=== PATIENT | female | born 1935 | race Caucasian/White ===

== ENCOUNTER → 2016-11-03 | Outpatient (CLI) | payer OTHER ==
[~2016-11-03] MED LIST: ENAL5TAB92 PO; MULTCAP45 PO; PANT40T PO
== END | disposition home or self-care (01) ==
LOC: LAB 08:38
PROVIDERS: ATTEND Physician Assistant
DX: R30.0 Dysuria (principal)
CPT/HCPCS: 87086

== ENCOUNTER → 2017-04-18 | Outpatient (CLI) | payer OTHER | END | disposition home or self-care (01) | LOC: LAB 06:46 | PROVIDERS: ATTEND Registered Nurse General Practice | DX: N39.0 Urinary tract infection, site not specified (principal) | CPT/HCPCS: 87086 ==

== ENCOUNTER → 2017-05-16 | Outpatient (CLI) | payer OTHER | END | disposition home or self-care (01) | LOC: LAB 09:06 | PROVIDERS: ATTEND Physician Assistant | DX: M25.872 Other specified joint disorders, left ankle and foot (principal) ==

== ENCOUNTER → 2017-09-08 | Outpatient (CLI) | payer OTHER ==
[2017-09-08 09:33] LABS: Urine RBC None Seen /hpf (0 - 4)
[2017-09-08 09:58] LABS: Basophils # (auto) 0 uL; Basophils % (auto) 0.4 % (0.0-2.0); Eosinophils # (auto) 0.1 uL; Hematocrit 39.9 % (36.0-46.0); Hemoglobin 13.4 g/dL (12.2-16.2); Lymphocytes # (auto) 1.5 uL; Lymphocytes % (auto) 26.4 % (10.0-50.0); Mean Corpuscular Hemoglobin 30.1 pg (28.0-32.0); Mean Corpuscular Hgb Conc. 33.7 g/dL (32.0-36.0); Mean Corpuscular Volume 89.5 fL (80.0-100.0); Mean Platelet Volume 7.7 fL (6.9-10.8); Monocytes # (auto) 0.5 uL; Monocytes % (auto) 8.7 % (0.0-12.0); Neutrophils # (auto) 3.6 uL; Neutrophils % (auto) 63.5 % (37.0-80.0); Platelet Count (auto) 371 10^3/uL (140-450); White Blood Cell 5.6 10^3/uL (4.4-10.8)
[2017-09-08 10:11] LABS: Urine Bilirubin Negative (Negative); Urine Blood Negative /uL (Negative); Urine Color Yellow (Yellow); Urine Glucose Normal (Normal); Urine Ketone Negative (Negative); Urine Nitrite Negative (Negative); Urine Squamous Epithelial Cell FEW /hpf (<5); Urine Urobilinogen Normal (Negative); Urine pH 6.5 (5.0-8.0)
[2017-09-08 10:49] LABS: Albumin 3.9 g/dL (3.4-5.0); BUN/Creatinine Ratio 18.6; Bilirubin, Total 0.4 mg/dL (0.2-1.0); Calcium 9.1 mg/dL (8.5-10.1); Potassium 4.9 mmol/L (3.5-5.1); Total Protein 7.4 g/dL (6.4-8.2)
== END | disposition home or self-care (01) ==
LOC: LAB 09:05
PROVIDERS: ATTEND Family Medicine
DX: I10 Essential (primary) hypertension (principal); K29.01 Acute gastritis with bleeding; M85.80 Other specified disorders of bone density and structure, unspecified site
CPT/HCPCS: 36415; 80053; 80061; 81001; 82306; 85025

== ENCOUNTER 2017-10-19 06:04 | Day surgery (SDC) | payer OTHER ==
[2017-10-17 12:45] LABS: Urine Bacteria NONE SEEN /hpf (None Seen); Urine Blood Negative /uL (Negative); Urine Mucus FEW (None Seen); Urine Specific Gravity 1.003 (1.001-1.035); Urine WBC 1 /hpf (0 - 5)
[2017-10-17 12:50] LABS: Basophils # (auto) 0.1 uL; Basophils % (auto) 1.5 % (0.0-2.0); Eosinophils # (auto) 0 uL; Eosinophils % (auto) 0.5 % (0.0-7.0); Hematocrit 38.5 % (36.0-46.0); Lymphocytes # (auto) 1.8 uL; Lymphocytes % (auto) 29.8 % (10.0-50.0); Mean Corpuscular Hemoglobin 29.9 pg (28.0-32.0); Mean Corpuscular Hgb Conc. 33.7 g/dL (32.0-36.0); Mean Corpuscular Volume 88.7 fL (80.0-100.0); Monocytes # (auto) 0.7 uL; Monocytes % (auto) 11.7 % (0.0-12.0); Neutrophils # (auto) 3.4 uL; Neutrophils % (auto) 56.5 % (37.0-80.0); Nucleated Red Blood Cells % 0.1 %; Platelet Count (auto) 422 10^3/uL (140-450); Red Blood Cells 4.34 10^6/uL (4.0-5.20); Red Cell Distribution Width 13.9 % (11.8-14.3)
[2017-10-17 13:15] LABS: Albumin 3.7 g/dL (3.4-5.0); BUN/Creatinine Ratio 20.6; Bilirubin, Total 0.3 mg/dL (0.2-1.0); Calcium 8.9 mg/dL (8.5-10.1); Potassium 4.5 mmol/L (3.5-5.1); Total Protein 7.4 g/dL (6.4-8.2)
[2017-10-17 13:41] LABS: INR 0.95 (0.9-1.15); Partial Thromboplastin Time 25.4 sec (22.64-33.71); Prothrombin Time 10.3 sec (9.37-12.3)
[~2017-10-19] VITALS: Ht 160 cm; Wt 54.4 kg
[2017-10-19] MEDS ORDERED: ceFAZolin 1GM/50ML 50 ML IV ONE (06:57)
[2017-10-19] MEDS ORDERED: LIDOCAINE HCL 100 MG/5ML (2%) SYRG INJ IV ONE (07:53)
[2017-10-19] MEDS ORDERED: MIDAZOLAM HCL 1MG/1ML-2 ML VIAL ONE (07:53)
[2017-10-19] MEDS ORDERED: PROPOFOL 10 MG/ML 20 ML IV ONE (07:53)
[2017-10-19] MEDS ORDERED: METOCLOPRAMIDE HCL 5MG/ml INJ 2ml VIAL ONE (07:54)
[2017-10-19] MEDS ORDERED: fentaNYL CITRATE 100 MCG/2 ML VL ONE (08:00)
[2017-10-19] MEDS ORDERED: LIDOCAINE 1% HCL (LOCAL ANESTH.) INJ 20ML MDV ONE (08:06)
[2017-10-19] MEDS ORDERED: ePHEDrine SULFATE 50 MG/ML AMP ONE (08:23)
[2017-10-19] MEDS ORDERED: STERILE WATER 10 ML ONE (08:23)
[2017-10-19] MEDS ORDERED: ePHEDrine SULFATE 50 MG/ML AMP IV PRN (08:30)
[2017-10-19] MEDS ORDERED: NALOXONE HCL 0.4 MG/ML VIAL IV PRN (08:30)
[2017-10-19] MEDS ORDERED: ONDANSETRON HCL 4 MG/2 ML VIAL IV ONE (08:30)
[2017-10-19] MEDS ORDERED: HYDROmorphone HCL 2 MG/ML VL IV PRN (08:30)
[2017-10-19 09:17] VITALS: BP 119/56
== END 2017-10-19 09:19 | disposition home or self-care (01) ==
LOC: SUR 06:04
PROVIDERS: ATTEND Surgery
DX: L57.0 Actinic keratosis (principal); D69.6 Thrombocytopenia, unspecified; Z88.5 Allergy status to narcotic agent; Z88.6 Allergy status to analgesic agent; Z88.2 Allergy status to sulfonamides; Z90.49 Acquired absence of other specified parts of digestive tract; I10 Essential (primary) hypertension; E11.9 Type 2 diabetes mellitus without complications
CPT/HCPCS: 27618; 36415; 80053; 81001; 85025; 85610; 85730; 88305; J0690; J2001; J2250; J2704; J2765; J3010; Q4131

== ENCOUNTER → 2018-12-08 | Outpatient (CLI) | payer OTHER ==
[~2018-12-08] MED LIST changes: +ENAL5TAB PO; -ENAL5TAB92 PO
[2018-12-08 09:43] LABS: Basophils # (auto) 0 uL; Basophils % (auto) 0.8 % (0.0-2.0); Eosinophils # (auto) 0.2 uL; Eosinophils % (auto) 4.4 % (0.0-7.0); Hematocrit 41.9 % (36.0-46.0); Hemoglobin 13.8 g/dL (12.2-16.2); Lymphocytes # (auto) 1.3 uL; Lymphocytes % (auto) 32.6 % (10.0-50.0); Mean Corpuscular Hemoglobin 29.4 pg (28.0-32.0); Mean Corpuscular Hgb Conc. 32.9 g/dL (32.0-36.0); Mean Corpuscular Volume 89.3 fL (80.0-100.0); Monocytes # (auto) 0.5 uL; Monocytes % (auto) 12.2 % (0.0-12.0); Neutrophils # (auto) 1.9 uL; Platelet Count (auto) 370 10^3/uL (140-450); Red Cell Distribution Width 13.7 % (11.8-14.3); White Blood Cell 3.8 10^3/uL (4.4-10.8)
[2018-12-08 09:46] LABS: Urine Bacteria NONE SEEN /hpf (None Seen); Urine Blood Negative /uL (Negative); Urine Specific Gravity 1.013 (1.001-1.035); Urine WBC 1 /hpf (0 - 5)
[2018-12-08 10:31] LABS: Albumin 3.8 g/dL (3.4-5.0); Potassium 4.4 mmol/L (3.5-5.1)
[2018-12-08 10:38] LABS: Bilirubin, Total 0.3 mg/dL (0.2-1.0); Calcium 9.1 mg/dL (8.5-10.1); Total Protein 7.5 g/dL (6.4-8.2)
[2018-12-08 16:28] LABS: BUN/Creatinine Ratio 16.2
== END | disposition home or self-care (01) ==
LOC: LAB 08:31
PROVIDERS: ATTEND Family Medicine
DX: I10 Essential (primary) hypertension (principal); K21.9 Gastro-esophageal reflux disease without esophagitis
CPT/HCPCS: 36415; 80053; 80061; 81001; 82306; 82607; 84443; 85025

== ENCOUNTER → 2019-01-29 | Outpatient (CLI) | payer OTHER | END | disposition home or self-care (01) | LOC: LAB 08:46 | PROVIDERS: ATTEND Nurse Practitioner Family | DX: N30.01 Acute cystitis with hematuria (principal) | CPT/HCPCS: 87086 ==

== ENCOUNTER → 2019-11-20 | Day surgery (SDC) | payer OTHER ==
[2019-11-15 09:21] LABS: Basophils # (auto) 0 uL; Basophils % (auto) 0.8 % (0.0-2.0); Eosinophils # (auto) 0.1 uL; Eosinophils % (auto) 1.8 % (0.0-7.0); Hematocrit 41.3 % (36.0-46.0); Hemoglobin 13.8 g/dL (12.2-16.2); Lymphocytes # (auto) 1.5 uL; Mean Corpuscular Hemoglobin 29.9 pg (28.0-32.0); Mean Corpuscular Hgb Conc. 33.5 g/dL (32.0-36.0); Mean Corpuscular Volume 89.3 fL (80.0-100.0); Monocytes # (auto) 0.5 uL; Neutrophils # (auto) 2.2 uL; Neutrophils % (auto) 51.4 % (37.0-80.0); Nucleated Red Blood Cells % 0.1 %; Platelet Count (auto) 343 10^3/uL (140-450); Red Blood Cells 4.62 10^6/uL (4.0-5.20); White Blood Cell 4.3 10^3/uL (4.4-10.8)
[2019-11-15 09:38] LABS: INR 1.01 (0.9-1.15); Partial Thromboplastin Time 29.6 sec (23.64-32.05)
[~2019-11-20] VITALS: Ht 160 cm; Wt 53.1 kg
[~2019-11-20] MED LIST changes: +LIDOCAINE VISCOUS 2% 15ML UD ONE; +MIDAZOLAM HCL 5 MG/ML-1ML VIAL ONE; -PANT40T PO; +PANT40TA2 PO; +SODIUM CHLORIDE LOCK 10 ML ONE; +diphenhdrAMINE HCL 50 MG/1 ML VL ONE; +fentaNYL CITRATE 100 MCG/2 ML VL ONE
[2019-11-20 12:55] VITALS: BP 154/59
== END | disposition home or self-care (01) ==
LOC: GI 10:52
PROVIDERS: ATTEND Internal Medicine Gastroenterology
DX: K29.50 Unspecified chronic gastritis without bleeding (principal); Z88.5 Allergy status to narcotic agent; Z88.2 Allergy status to sulfonamides; Z88.8 Allergy status to other drugs, medicaments and biological substances; Z79.899 Other long term (current) drug therapy; Z90.49 Acquired absence of other specified parts of digestive tract; Z87.891 Personal history of nicotine dependence
CPT/HCPCS: 36415; 43239; 85025; 85610; 85730; 88305; 88342; J1200; J2250; J3010; J7030

== ENCOUNTER → 2021-07-24 | Outpatient (CLI) | payer OTHER ==
[~2021-07-24] MED LIST changes: -ENAL5TAB PO; +ENAL5TAB10 PO; -LIDOCAINE VISCOUS 2% 15ML UD ONE; -MIDAZOLAM HCL 5 MG/ML-1ML VIAL ONE; -SODIUM CHLORIDE LOCK 10 ML ONE; -diphenhdrAMINE HCL 50 MG/1 ML VL ONE; -fentaNYL CITRATE 100 MCG/2 ML VL ONE
[2021-07-24 09:34] LABS: Basophils # (auto) 0 10 ^3/uL (0-0.2); Basophils % (auto) 0.5 % (0.0-2.0); Eosinophils # (auto) 0 10 ^3/uL (0-0.8); Eosinophils % (auto) 1.1 % (0.0-7.0); Hematocrit 37.4 % (36.0-46.0); Hemoglobin 12.8 g/dL (12.2-16.2); Lymphocytes # (auto) 1.4 10 ^3/uL (0.4-5.4); Lymphocytes % (auto) 35.2 % (10.0-50.0); Mean Corpuscular Hemoglobin 29.9 pg (28.0-32.0); Mean Corpuscular Hgb Conc. 34.2 g/dL (32.0-36.0); Mean Corpuscular Volume 87.5 fL (80.0-100.0); Monocytes # (auto) 0.5 10 ^3/uL (0-1.3); Monocytes % (auto) 11.8 % (0.0-12.0); Neutrophils # (auto) 2.1 10 ^3/uL (1.6-8.6); Neutrophils % (auto) 51.4 % (37.0-80.0); Nucleated Red Blood Cells % 0.1 %; Red Blood Cells 4.28 10^6/uL (4.0-5.20); White Blood Cell 4.1 10^3/uL (4.4-10.8)
[2021-07-24 09:45] LABS: Urine Bacteria NONE SEEN /hpf (None Seen); Urine Blood Negative /uL (Negative); Urine Specific Gravity 1.012 (1.001-1.035); Urine WBC <1 /hpf (0 - 5)
[2021-07-24 10:10] LABS: Potassium 4.7 mmol/L (3.5-5.1)
[2021-07-24 10:20] LABS: Albumin 3.7 g/dL (3.4-5.0); BUN/Creatinine Ratio 25.4; Bilirubin, Total 0.3 mg/dL (0.2-1.0); Calcium 9.5 mg/dL (8.5-10.1); Total Protein 6.9 g/dL (6.4-8.2)
== END | disposition home or self-care (01) ==
LOC: LAB 08:55
PROVIDERS: ATTEND Student in an Organized Health Care Education/Training Program
DX: I10 Essential (primary) hypertension (principal); M81.0 Age-related osteoporosis without current pathological fracture; E78.49 Other hyperlipidemia; S32.89XS Fracture of other parts of pelvis, sequela
CPT/HCPCS: 36415; 80053; 80061; 81001; 82306; 85025

== ENCOUNTER → 2022-02-02 | Outpatient (CLI) | payer OTHER ==
[~2022-02-02] VITALS: Ht 157.5 cm; Wt 53.5 kg
[~2022-02-02] MED LIST changes: +ADENOSINE 45 MG in GIVE UN-DILUTED 0 ML IV ONE
[2022-02-02 09:15] VITALS: BP 160/60
== END | disposition home or self-care (01) ==
LOC: XYW 07:48
PROVIDERS: ATTEND Internal Medicine
DX: R07.9 Chest pain, unspecified (principal); U09.9 Post COVID-19 condition, unspecified; Z87.898 Personal history of other specified conditions
CPT/HCPCS: 78452; 93017; A9500; J0153

== ENCOUNTER → 2022-02-03 | Outpatient (CLI) | payer OTHER ==
[~2022-02-03] MED LIST changes: -ADENOSINE 45 MG in GIVE UN-DILUTED 0 ML IV ONE
== END | disposition home or self-care (01) ==
LOC: XYW 09:28
PROVIDERS: ATTEND Internal Medicine
DX: R07.89 Other chest pain (principal)
CPT/HCPCS: 93886

== ENCOUNTER 2022-05-12 06:51 | Day surgery (SDC) | payer OTHER ==
[2022-05-10 11:11] LABS: Basophils # (auto) 0 10 ^3/uL (0-0.2); Basophils % (auto) 0.4 % (0.0-2.0); Eosinophils # (auto) 0 10 ^3/uL (0-0.8); Eosinophils % (auto) 0.6 % (0.0-7.0); Hematocrit 40.1 % (36.0-46.0); Lymphocytes # (auto) 1.3 10 ^3/uL (0.4-5.4); Lymphocytes % (auto) 32.3 % (10.0-50.0); Mean Corpuscular Hemoglobin 28.1 pg (28.0-32.0); Mean Corpuscular Hgb Conc. 32.3 g/dL (32.0-36.0); Mean Corpuscular Volume 87.1 fL (80.0-100.0); Monocytes # (auto) 0.5 10 ^3/uL (0-1.3); Monocytes % (auto) 10.9 % (0.0-12.0); Neutrophils # (auto) 2.3 10 ^3/uL (1.6-8.6); Neutrophils % (auto) 55.8 % (37.0-80.0); Nucleated Red Blood Cells % 0.1 %; Red Blood Cells 4.61 10^6/uL (4.0-5.20); Red Cell Distribution Width 14.8 % (11.8-14.3); White Blood Cell 4.1 10^3/uL (4.4-10.8)
[2022-05-10 11:56] LABS: Albumin 3.9 g/dL (3.4-5.0); Calcium 9.1 mg/dL (8.5-10.1); Potassium 5.1 mmol/L (3.5-5.1)
[2022-05-10 12:05] LABS: BUN/Creatinine Ratio 16.7; Bilirubin, Total 0.4 mg/dL (0.2-1.0); Total Protein 7.5 g/dL (6.4-8.2)
[2022-05-10 12:10] LABS: Partial Thromboplastin Time 30.2 sec (24.6-33.4)
[~2022-05-12] VITALS: Ht 157.5 cm; Wt 53.1 kg
[~2022-05-12 06:51] MED LIST changes: +ALEN70TA2 PO; +CALCTAB62 PO; +CRAN600T PO; -PANT40TA2 PO
[2022-05-12] MEDS ORDERED: fentaNYL CITRATE 100 MCG/2 ML VL ONE (09:37)
[2022-05-12] MEDS ORDERED: ANGIOMAX 250 MG VIAL IV ONE (09:37)
[2022-05-12] MEDS ORDERED: HEPARIN SODIUM (PORCINE) 5000 UNITS/ML 1ML VIAL ONE (09:37)
[2022-05-12] MEDS ORDERED: VERAPAMIL 2.5MG/ML INJ 2ML VIAL IV ONE (09:37)
[2022-05-12] MEDS ORDERED: SODIUM CHL 0.9% 0 ML ONE (09:38)
[2022-05-12] MEDS ORDERED: MIDAZOLAM HCL 2MG/2ML 2ml VIAL (1mg/ml) ONE (09:38)
[2022-05-12] MEDS ORDERED: IODIXANOL 320MG/ML 100ML BTL IV ONE (09:38)
[2022-05-12] MEDS ORDERED: LIDOCAINE 2%HCL (LOCAL ANESTH.) INJ 10ml MDV ONE (09:39)
[2022-05-12] MEDS ORDERED: ONDANSETRON HCL 4 MG/2 ML VIAL IV PRN (12:30)
== END 2022-05-12 13:20 | disposition home or self-care (01) ==
LOC: CATH 06:51
PROVIDERS: ATTEND Internal Medicine
DX: R94.39 Abnormal result of other cardiovascular function study (principal); I25.10 Atherosclerotic heart disease of native coronary artery without angina pectoris; Z87.891 Personal history of nicotine dependence; Z20.822 Contact with and (suspected) exposure to COVID-19; Z82.49 Family history of ischemic heart disease and other diseases of the circulatory system
CPT/HCPCS: 36415; 80053; 85025; 85610; 85730; 93458; C1769; C1887; C1894; J1644; J2001; J2250; J3010; J7030; Q9967; U0003; 99152

== ENCOUNTER 2022-07-12 06:41 | Day surgery (SDC) | payer OTHER ==
[2022-07-09 10:15] LABS: Basophils # (auto) 0 10 ^3/uL (0-0.2); Basophils % (auto) 0.7 % (0.0-2.0); Eosinophils # (auto) 0.1 10 ^3/uL (0-0.8); Eosinophils % (auto) 2.5 % (0.0-7.0); Hematocrit 40.6 % (36.0-46.0); Hemoglobin 13.4 g/dL (12.2-16.2); Lymphocytes # (auto) 1.3 10 ^3/uL (0.4-5.4); Lymphocytes % (auto) 33.3 % (10.0-50.0); Mean Corpuscular Hemoglobin 28.9 pg (28.0-32.0); Mean Corpuscular Hgb Conc. 32.9 g/dL (32.0-36.0); Mean Corpuscular Volume 87.6 fL (80.0-100.0); Monocytes # (auto) 0.5 10 ^3/uL (0-1.3); Monocytes % (auto) 12.1 % (0.0-12.0); Neutrophils # (auto) 2.1 10 ^3/uL (1.6-8.6); Neutrophils % (auto) 51.4 % (37.0-80.0); Nucleated Red Blood Cells % 0.1 %; Red Blood Cells 4.63 10^6/uL (4.0-5.20); Red Cell Distribution Width 14.8 % (11.8-14.3)
[2022-07-09 10:55] LABS: Albumin 3.9 g/dL (3.4-5.0); Calcium 9.3 mg/dL (8.5-10.1); Potassium 5.1 mmol/L (3.5-5.1)
[2022-07-09 11:00] LABS: BUN/Creatinine Ratio 16.7; Bilirubin, Total 0.4 mg/dL (0.2-1.0); INR 0.98 (0.9-1.15); Partial Thromboplastin Time 31.8 sec (24.6-33.4); Total Protein 7.2 g/dL (6.4-8.2)
[~2022-07-12] VITALS: Ht 154.9 cm; Wt 53.5 kg
[~2022-07-12 06:41] MED LIST changes: -ALEN70TA2 PO; +FLEC1TAB PO; +PANT40TA2 PO
[2022-07-12] MEDS ORDERED: LIDOCAINE 2%HCL (LOCAL ANESTH.) INJ 20ML MDV ONE ×2 (08:32→09:19)
[2022-07-12] MEDS ORDERED: fentaNYL CITRATE 100 MCG/2 ML VL ONE (09:17)
[2022-07-12] MEDS ORDERED: VANCOMYCIN 1GM/250ML 250 ML IV ONE (09:17)
[2022-07-12 09:28] VITALS: BP 162/69
[2022-07-12] MEDS ORDERED: ENAL2.5T11 PO (10:06)
== END 2022-07-12 10:45 | disposition home or self-care (01) ==
LOC: CATH 06:41
PROVIDERS: ATTEND Internal Medicine
DX: R55 Syncope and collapse (principal); Z87.891 Personal history of nicotine dependence; Z82.49 Family history of ischemic heart disease and other diseases of the circulatory system; Z20.822 Contact with and (suspected) exposure to COVID-19
CPT/HCPCS: 33285; 36415; 80053; 85025; 85610; 85730; C1764; J3010; J3370; J7030; U0003; 99152

== ENCOUNTER → 2022-08-16 | Outpatient (CLI) | payer OTHER ==
[~2022-08-16] MED LIST changes: +ENAL2.5T11 PO; -ENAL5TAB10 PO
== END | disposition home or self-care (01) ==
LOC: XYW 09:22
PROVIDERS: ATTEND Internal Medicine
DX: I99.8 Other disorder of circulatory system (principal); R00.2 Palpitations; R55 Syncope and collapse
CPT/HCPCS: 93886

== ENCOUNTER 2023-07-06 19:34 | Emergency (ER) | payer OTHER ==
[~2023-07-06] VITALS: Ht 157.5 cm; Wt 53.2 kg
[2023-07-06 20:18] LABS: Basophils # (auto) 0.1 10 ^3/uL (0-0.2); Basophils % (auto) 0.8 % (0.0-2.0); Eosinophils # (auto) 0.3 10 ^3/uL (0-0.8); Hematocrit 35.9 % (36.0-46.0); Hemoglobin 12.3 g/dL (12.2-16.2); Lymphocytes # (auto) 2.1 10 ^3/uL (0.4-5.4); Lymphocytes % (auto) 18.1 % (10.0-50.0); Mean Corpuscular Hemoglobin 29.3 pg (28.0-32.0); Mean Corpuscular Hgb Conc. 34.3 g/dL (32.0-36.0); Mean Corpuscular Volume 85.5 fL (80.0-100.0); Monocytes # (auto) 1.2 10 ^3/uL (0-1.3); Monocytes % (auto) 10.3 % (0.0-12.0); Neutrophils # (auto) 7.8 10 ^3/uL (1.6-8.6); Neutrophils % (auto) 67.8 % (37.0-80.0); White Blood Cell 11.4 10^3/uL (4.4-10.8)
[2023-07-06 20:33] LABS: Alanine Aminotransferase 18 U/L (7-40); Albumin 4.6 g/dL (3.2-4.8); Alkaline Phosphatase 88 U/L (46-116); Anion Gap 3 (5-15); Aspartate Aminotransferase 19 U/L (13-40); BUN/Creatinine Ratio 11.8 (10.0-20.0); Bilirubin, Total 0.2 mg/dL (0.2-1.0); Blood Urea Nitrogen 9 mg/dL (9-23); Calcium 9.9 mg/dL (8.7-10.4); Carbon Dioxide 30 mmol/L (20-30); Chloride 95 mmol/L (98-107); Glucose 128 mg/dL (74-106); Potassium 4.2 mmol/L (3.5-5.1); Sodium 128 mmol/L (136-145); Total Protein 7.1 g/dL (5.7-8.2)
[2023-07-06 20:52] LABS: Urine Bacteria NONE SEEN /hpf (None Seen); Urine Blood Negative /uL (Negative); Urine Clarity Clear (Clear); Urine Color Colorless (Yellow); Urine Protein, UAD Negative (Negative); Urine Specific Gravity 1.009 (1.001-1.035); Urine Urobilinogen Normal (Negative); Urine WBC <1 /hpf (0 - 5)
[2023-07-06 20:53] LABS: INR 1.06 (0.9-1.15); Partial Thromboplastin Time 32.8 SEC (24.5-34.5); Prothrombin Time 11.1 sec (9.3-11.8)
[2023-07-06 22:00] VITALS: BP 138/67; PULSE 63; RESP 18; TEMP 98.4; O2SAT 97
== END 2023-07-06 22:10 | disposition home or self-care (01) ==
LOC: ER 19:36
DX: K62.5 Hemorrhage of anus and rectum (principal); I10 Essential (primary) hypertension; Z86.73 Personal history of transient ischemic attack (TIA), and cerebral infarction without residual deficits; Z90.49 Acquired absence of other specified parts of digestive tract; Z90.89 Acquired absence of other organs; Z88.6 Allergy status to analgesic agent; Z88.2 Allergy status to sulfonamides
CPT/HCPCS: 36415; 74176; 80053; 81001; 85025; 85610; 85730; 93005

== ENCOUNTER 2023-08-07 09:30 | Inpatient (IN) | payer MEDICARE, OTHER ==
[~2023-08-07] VITALS: Ht 162.6 cm; Wt 53.4 kg
[~2023-08-07 09:30] MED LIST changes: +ASPI-543 PO; +CLON0.1T PO; +LOSA50TA46 PO; +MULT-1018 PO
[2023-08-07 10:15] LABS: Basophils # (auto) 0 10 ^3/uL (0-0.2); Basophils % (auto) 0.6 % (0.0-2.0); Eosinophils # (auto) 0.1 10 ^3/uL (0-0.8); Eosinophils % (auto) 1.9 % (0.0-7.0); Hematocrit 35.7 % (36.0-46.0); Hemoglobin 11.7 g/dL (12.2-16.2); Lymphocytes % (auto) 17.8 % (10.0-50.0); Mean Corpuscular Hemoglobin 28.2 pg (28.0-32.0); Mean Corpuscular Hgb Conc. 32.7 g/dL (32.0-36.0); Mean Corpuscular Volume 86.2 fL (80.0-100.0); Monocytes # (auto) 0.5 10 ^3/uL (0-1.3); Monocytes % (auto) 9.7 % (0.0-12.0); Nucleated Red Blood Cells % 0.1 %; Red Blood Cells 4.14 10^6/uL (4.0-5.20); Red Cell Distribution Width 14.6 % (11.8-14.3); White Blood Cell 5.7 10^3/uL (4.4-10.8)
[2023-08-07 10:48] LABS: Alanine Aminotransferase 16 U/L (7-40); Albumin 4.1 g/dL (3.2-4.8); Alkaline Phosphatase 70 U/L (46-116); Anion Gap 7 (5-15); Aspartate Aminotransferase 24 U/L (13-40); BUN/Creatinine Ratio 18.1 (10.0-20.0); Blood Urea Nitrogen 13 mg/dL (9-23); Calcium 9.2 mg/dL (8.7-10.4); Carbon Dioxide 23 mmol/L (20-30); Chloride 105 mmol/L (98-107); Glucose 92 mg/dL (74-106); Potassium 4.5 mmol/L (3.5-5.1); Sodium 135 mmol/L (136-145)
[2023-08-07 10:49] LABS: Bilirubin, Total 0.4 mg/dL (0.2-1.0); Total Protein 6.3 g/dL (5.7-8.2)
[2023-08-07] MEDS ORDERED: ACETAMINOPHEN 325 MG TAB PO PRN (13:45)
[2023-08-07] MEDS ORDERED: MORPHINE SULFATE INJ 2 MG/ml SYRG IV PRN (13:45)
[2023-08-07] MEDS ORDERED: NITROGLYCERIN 0.4 MG SL TAB SL PRN (13:45)
[2023-08-07] MEDS: SODIUM CHLORIDE 0.9% 1,000 ML IV SCH (13:52)
[2023-08-07 15:44] LABS: Urine Amorphous Crystal FEW /hpf (None Seen); Urine Bacteria NONE SEEN /hpf (None Seen); Urine Blood Negative /uL (Negative); Urine Clarity HAZY (Clear); Urine Color Yellow (Yellow); Urine Hyaline Cast FEW /lpf (0 - 2); Urine Mucus FEW (None Seen); Urine Protein, UAD TRACE (Negative); Urine Specific Gravity 1.017 (1.001-1.035); Urine Urobilinogen Normal (Negative); Urine WBC 4 /hpf (0 - 5); Urine pH 6.5 (5.0-8.0)
[2023-08-07 17:30] VITALS: PULSE 92
[2023-08-07 21:18] VITALS: PULSE 51; RESP 16; O2SAT 99
[2023-08-07 22:00] VITALS: BP 154/91; PULSE 51; RESP 16; TEMP 98.1; O2SAT 99
[2023-08-07] MEDS: FLECAINIDE ACETATE 50 MG TAB PO SCH (22:00)
[2023-08-08 05:00] VITALS: BP 156/56; PULSE 51; RESP 16; TEMP 98.3; O2SAT 98
[2023-08-08 06:54] LABS: Basophils # (auto) 0 10 ^3/uL (0-0.2); Basophils % (auto) 0.8 % (0.0-2.0); Eosinophils # (auto) 0.2 10 ^3/uL (0-0.8); Eosinophils % (auto) 4.9 % (0.0-7.0); Hematocrit 34.2 % (36.0-46.0); Hemoglobin 11.4 g/dL (12.2-16.2); Lymphocytes # (auto) 1.3 10 ^3/uL (0.4-5.4); Lymphocytes % (auto) 29.7 % (10.0-50.0); Mean Corpuscular Hemoglobin 28.7 pg (28.0-32.0); Mean Corpuscular Hgb Conc. 33.4 g/dL (32.0-36.0); Mean Corpuscular Volume 86.2 fL (80.0-100.0); Monocytes # (auto) 0.6 10 ^3/uL (0-1.3); Monocytes % (auto) 13.6 % (0.0-12.0); Neutrophils # (auto) 2.2 10 ^3/uL (1.6-8.6); Nucleated Red Blood Cells % 0.1 %; Red Blood Cells 3.97 10^6/uL (4.0-5.20); Red Cell Distribution Width 14.5 % (11.8-14.3); White Blood Cell 4.4 10^3/uL (4.4-10.8)
[2023-08-08 07:13] LABS: Alanine Aminotransferase 11 U/L (7-40); Alkaline Phosphatase 51 U/L (46-116); Anion Gap 8 (5-15); BUN/Creatinine Ratio 17.9 (10.0-20.0); Blood Urea Nitrogen 10 mg/dL (9-23); Calcium 9.1 mg/dL (8.5-10.1); Carbon Dioxide 23 mmol/L (20-30); Chloride 106 mmol/L (98-107); Glucose 75 mg/dL (74-106); Potassium 4.1 mmol/L (3.5-5.1); Sodium 137 mmol/L (136-145)
[2023-08-08 07:15] LABS: Albumin 3.7 g/dL (3.2-4.8); Aspartate Aminotransferase 15 U/L (13-40); Bilirubin, Total 0.5 mg/dL (0.2-1.0); Total Protein 5.9 g/dL (5.7-8.2)
[2023-08-08 08:00] VITALS: PULSE 56; PULSE 63; RESP 18; O2SAT 96
[2023-08-08 09:00] VITALS: BP 141/90; PULSE 56; RESP 18; TEMP 98.2; O2SAT 96
[2023-08-08] MEDS: FLECAINIDE ACETATE 50 MG TAB PO SCH (10:00)
[2023-08-08] MEDS ORDERED: MULTIPLE VITAMIN TAB PO SCH (10:00)
[2023-08-08] MEDS ORDERED: ENOXAPARIN SOD 40 MG/0.4 ML SYRINGE SC SCH (10:00)
[2023-08-08] MEDS ORDERED: LOSARTAN POTASSIUM 50 MG TAB PO SCH (10:00)
[2023-08-08] MEDS ORDERED: cloNIDine HCL 0.1 MG TAB PO SCH (10:00)
[2023-08-08] MEDS ORDERED: PANTOPRAZOLE 40 MG TAB PO SCH (10:00)
[2023-08-08] MEDS ORDERED: ASPirin-EC 81 mg tab PO SCH (10:00)
[2023-08-08] MEDS: SODIUM CHLORIDE 0.9% 1,000 ML IV SCH (10:36)
[2023-08-08 12:48] VITALS: BP 145/73; PULSE 56; RESP 19; TEMP 97.9; O2SAT 100
[2023-08-08 16:27] VITALS: BP 133/67; PULSE 63; RESP 19; TEMP 98.1; O2SAT 98
[2023-08-08 16:54] VITALS: BP 133/67; PULSE 54; RESP 19; TEMP 98.1; O2SAT 98
[2023-08-08] MEDS ORDERED: ATORVASTATIN 20 MG TAB PO SCH (22:00)
== END 2023-08-08 17:05 | disposition home or self-care (01) | DRG 316 ==
LOC: EDBD 09:30 → ER 09:30 → MERGE 13:39 → TELE 13:39 → TELE-CENTR 21:10
PROVIDERS: ADMIT Internal Medicine
DX: T82.119A Breakdown (mechanical) of unspecified cardiac electronic device, initial encounter (principal); I10 Essential (primary) hypertension; E78.5 Hyperlipidemia, unspecified; Y71.2 Prosthetic and other implants, materials and accessory cardiovascular devices associated with adverse incidents; K21.9 Gastro-esophageal reflux disease without esophagitis; Y92.89 Other specified places as the place of occurrence of the external cause; Z88.5 Allergy status to narcotic agent; Z88.8 Allergy status to other drugs, medicaments and biological substances; I25.2 Old myocardial infarction; Z90.49 Acquired absence of other specified parts of digestive tract; Z88.6 Allergy status to analgesic agent; Z85.828 Personal history of other malignant neoplasm of skin; Z95.0 Presence of cardiac pacemaker; Z82.49 Family history of ischemic heart disease and other diseases of the circulatory system
CPT/HCPCS: 36415; 70450; 71045; 80053; 81001; 83735; 84443; 84484; 85025; 93005; 93886; 96360; 97163; G0378

== ENCOUNTER 2023-09-18 17:22 | Emergency (ER) | payer OTHER ==
[~2023-09-18] VITALS: Ht 157.5 cm; Wt 51.6 kg
[2023-09-18 21:51] LABS: Basophils # (auto) 0 10 ^3/uL (0-0.2); Basophils % (auto) 0.8 % (0.0-2.0); Eosinophils # (auto) 0.2 10 ^3/uL (0-0.8); Hematocrit 37.4 % (36.0-46.0); Hemoglobin 12.2 g/dL (12.2-16.2); Lymphocytes # (auto) 1.6 10 ^3/uL (0.4-5.4); Lymphocytes % (auto) 27.3 % (10.0-50.0); Mean Corpuscular Hemoglobin 28.5 pg (28.0-32.0); Mean Corpuscular Hgb Conc. 32.5 g/dL (32.0-36.0); Mean Corpuscular Volume 87.7 fL (80.0-100.0); Monocytes # (auto) 0.5 10 ^3/uL (0-1.3); Monocytes % (auto) 8.4 % (0.0-12.0); Neutrophils # (auto) 3.6 10 ^3/uL (1.6-8.6); Neutrophils % (auto) 60.5 % (37.0-80.0); Nucleated Red Blood Cells % 0.1 %; Red Blood Cells 4.26 10^6/uL (4.0-5.20); Red Cell Distribution Width 15.2 % (11.8-14.3)
[2023-09-18 22:52] LABS: Alanine Aminotransferase 23 U/L (7-40); Albumin 4.3 g/dL (3.2-4.8); Alkaline Phosphatase 69 U/L (46-116); Anion Gap 7 (5-15); Aspartate Aminotransferase 28 U/L (13-40); BUN/Creatinine Ratio 12.1 (10.0-20.0); Bilirubin, Total 0.5 mg/dL (0.2-1.0); Blood Urea Nitrogen 8 mg/dL (9-23); Calcium 9.5 mg/dL (8.7-10.4); Carbon Dioxide 25 mmol/L (20-30); Chloride 101 mmol/L (98-107); Glucose 116 mg/dL (74-106); Potassium 4.3 mmol/L (3.5-5.1); Sodium 133 mmol/L (136-145); Total Protein 6.7 g/dL (5.7-8.2)
[2023-09-18 23:01] VITALS: BP 129/53; PULSE 65; RESP 14; TEMP 98.9; O2SAT 99
== END 2023-09-18 23:54 | disposition home or self-care (01) ==
LOC: ER 17:22
DX: I10 Essential (primary) hypertension (principal); Z98.890 Other specified postprocedural states; Z88.8 Allergy status to other drugs, medicaments and biological substances; Z79.899 Other long term (current) drug therapy
CPT/HCPCS: 36415; 80053; 84484; 85025

== ENCOUNTER → 2023-11-18 | Outpatient (CLI) | payer OTHER | END | disposition home or self-care (01) | LOC: LAB 10:20 | PROVIDERS: ATTEND Family Medicine | DX: L57.0 Actinic keratosis (principal); D48.5 Neoplasm of uncertain behavior of skin | CPT/HCPCS: 88302 ==

== ENCOUNTER 2024-04-18 08:59 | Day surgery (SDC) | payer OTHER ==
[2024-04-17 12:48] LABS: Basophils # (auto) 0 10 ^3/uL (0-0.2); Basophils % (auto) 0.7 % (0.0-2.0); Eosinophils # (auto) 0.1 10 ^3/uL (0-0.8); Eosinophils % (auto) 2.1 % (0.0-7.0); Hematocrit 39.2 % (36.0-46.0); Hemoglobin 13.1 g/dL (12.2-16.2); Lymphocytes # (auto) 1.4 10 ^3/uL (0.4-5.4); Mean Corpuscular Hemoglobin 29.2 pg (28.0-32.0); Mean Corpuscular Hgb Conc. 33.4 g/dL (32.0-36.0); Mean Corpuscular Volume 87.4 fL (80.0-100.0); Monocytes # (auto) 0.6 10 ^3/uL (0-1.3); Monocytes % (auto) 11.6 % (0.0-12.0); Neutrophils # (auto) 3.2 10 ^3/uL (1.6-8.6); Neutrophils % (auto) 59.6 % (37.0-80.0); Red Blood Cells 4.48 10^6/uL (4.0-5.20); Red Cell Distribution Width 14.3 % (11.8-14.3); White Blood Cell 5.3 10^3/uL (4.4-10.8)
[2024-04-17 13:12] LABS: INR 1.02 (0.9-1.15); Partial Thromboplastin Time 28.9 SEC (24.5-34.5); Prothrombin Time 10.8 sec (9.3-11.8)
[2024-04-17 13:35] LABS: Alanine Aminotransferase 24 U/L (7-40); Albumin 4.6 g/dL (3.2-4.8); Alkaline Phosphatase 72 U/L (46-116); Anion Gap 3 (5-15); Aspartate Aminotransferase 23 U/L (13-40); BUN/Creatinine Ratio 15.9 (10.0-20.0); Bilirubin, Total 0.4 mg/dL (0.2-1.0); Blood Urea Nitrogen 11 mg/dL (9-23); Calcium 10.2 mg/dL (8.5-10.1); Carbon Dioxide 29 mmol/L (20-30); Chloride 103 mmol/L (98-107); Glucose 84 mg/dL (74-106); Potassium 4.6 mmol/L (3.5-5.1); Sodium 135 mmol/L (136-145)
[2024-04-18] VITALS (7 sets, daily range): BP systolic 117–141; BP diastolic 53–66; PULSE 67–78; RESP 12–14; O2SAT 95–98
[~2024-04-18] VITALS: Ht 154.9 cm; Wt 51.7 kg
[~2024-04-18 08:59] MED LIST changes: +CALC-312 PO; -CALCTAB62 PO; +CHOL20007 OR; -ENAL2.5T11 PO; -FLEC1TAB PO; +LACTCAP35 OR; +LOSA-533 PO; -LOSA50TA46 PO; +MAGNTAB16 OR; -MULT-1018 PO; -MULTCAP45 PO; +PREN1MIS10 PO
[2024-04-18] MEDS ORDERED: IODIXANOL 320MG/ML 100ML BTL IV ONE ×2 (11:36→12:46)
[2024-04-18] MEDS ORDERED: LIDOCAINE 2%HCL (LOCAL ANESTH.) INJ 20ML MDV ONE (12:47)
[2024-04-18] MEDS ORDERED: HEPARIN SODIUM (PORCINE) 5000 UNITS/ML 1ML VIAL ONE (12:54)
[2024-04-18] MEDS ORDERED: VERAPAMIL 2.5MG/ML INJ 2ML VIAL IV ONE (12:54)
[2024-04-18] MEDS ORDERED: fentaNYL CITRATE 100 MCG/2 ML VL ONE (12:54)
[2024-04-18] MEDS ORDERED: ANGIOMAX 250 MG VIAL IV ONE (12:54)
[2024-04-18] MEDS ORDERED: MIDAZOLAM HCL 2MG/2ML 2ml VIAL (1mg/ml) ONE (12:54)
[2024-04-18] MEDS ORDERED: SODIUM CHL 0.9% 0 ML ONE (12:55)
[2024-04-18] MEDS ORDERED: METOPROLOL TARTRATE 1MG/1ML-5ML VIAL IV ONE (13:37)
== END 2024-04-18 16:00 | disposition home or self-care (01) ==
LOC: CATH 08:59
PROVIDERS: ATTEND Internal Medicine
DX: I25.10 Atherosclerotic heart disease of native coronary artery without angina pectoris (principal); R07.9 Chest pain, unspecified; Z98.890 Other specified postprocedural states; Z87.891 Personal history of nicotine dependence; Z88.5 Allergy status to narcotic agent; Z88.1 Allergy status to other antibiotic agents; Z88.8 Allergy status to other drugs, medicaments and biological substances; Z82.49 Family history of ischemic heart disease and other diseases of the circulatory system
CPT/HCPCS: 36415; 80053; 85025; 85610; 85730; 93458; C1887; C1894; J1644; J2250; J3010; J7030; Q9967; 99152

== ENCOUNTER → 2025-01-14 | Outpatient (CLI) | payer OTHER ==
[2025-01-14 10:22] LABS: Urine Bacteria None Seen /hpf (None Seen)
[2025-01-14 10:48] LABS: Basophils # (auto) 0 10 ^3/uL (0-0.2); Basophils % (auto) 0.6 % (0.0-2.0); Eosinophils # (auto) 0.2 10 ^3/uL (0-0.8); Eosinophils % (auto) 2.5 % (0.0-7.0); Hematocrit 39.3 % (36.0-46.0); Hemoglobin 13.2 g/dL (12.2-16.2); Lymphocytes # (auto) 1.5 10 ^3/uL (0.4-5.4); Lymphocytes % (auto) 23.6 % (10.0-50.0); Mean Corpuscular Hemoglobin 29.4 pg (28.0-32.0); Mean Corpuscular Hgb Conc. 33.6 g/dL (32.0-36.0); Mean Corpuscular Volume 87.5 fL (80.0-100.0); Monocytes # (auto) 0.5 10 ^3/uL (0-1.3); Monocytes % (auto) 8.2 % (0.0-12.0); Neutrophils # (auto) 4.1 10 ^3/uL (1.6-8.6); Neutrophils % (auto) 65.1 % (37.0-80.0); Nucleated Red Blood Cells % 0.1 %; Platelet Count (auto) 321 10^3/uL (140-450); Red Blood Cells 4.49 10^6/uL (4.0-5.20); Red Cell Distribution Width 14.5 % (11.8-14.3); White Blood Cell 6.2 10^3/uL (4.4-10.8)
[2025-01-14 10:58] LABS: Urine Amorphous Crystal MOD /hpf (None Seen); Urine Blood Negative /uL (Negative); Urine Color Light-Yellow (Yellow); Urine Protein, UAD Negative (Negative); Urine Specific Gravity 1.011 (1.001-1.035); Urine Squamous Epithelial Cell FEW /hpf (<5); Urine Urobilinogen Normal (Negative); Urine WBC < 1 /HPF (0-5)
[2025-01-14 11:00] LABS: Urine Clarity Clear (Clear)
[2025-01-14 11:28] LABS: Alkaline Phosphatase 74 U/L (46-116); Triglycerides 88 mg/dL (< 150)
[2025-01-14 11:29] LABS: Alanine Aminotransferase 20 U/L (7-40); Anion Gap 6 (5-15); BUN/Creatinine Ratio 15.8 (10.0-20.0); Blood Urea Nitrogen 12 mg/dL (9-23); Calcium 10.4 mg/dL (8.7-10.4); Carbon Dioxide 29 mmol/L (20-31); Chloride 101 mmol/L (98-107); Glucose 87 mg/dL (74-106); Potassium 4.5 mmol/L (3.5-5.1); Sodium 136 mmol/L (136-145); Total Protein 7.1 g/dL (5.7-8.2)
[2025-01-14 11:30] LABS: Albumin 4.7 g/dL (3.2-4.8); Aspartate Aminotransferase 23 U/L (13-40)
[2025-01-14 11:31] LABS: Bilirubin, Total 0.4 mg/dL (0.2-1.0)
[2025-01-14 11:33] LABS: Cholesterol 220 mg/dL (< 200); HDL Cholesterol 78 mg/dL (40-59); LDL Cholesterol 124 mg/dL (< 100)
== END | disposition home or self-care (01) ==
LOC: LAB 09:48
PROVIDERS: ATTEND Nurse Practitioner
DX: I10 Essential (primary) hypertension (principal); E78.5 Hyperlipidemia, unspecified; R73.9 Hyperglycemia, unspecified
CPT/HCPCS: 36415; 80053; 80061; 81001; 83036; 84443; 85025

== ENCOUNTER → 2025-04-10 | Outpatient (CLI) | payer OTHER ==
[2025-04-10 10:12] LABS: Alanine Aminotransferase 17 U/L (7-40); Alkaline Phosphatase 76 U/L (46-116); Anion Gap 8 (5-15); BUN/Creatinine Ratio 12.7 (10.0-20.0); Blood Urea Nitrogen 10 mg/dL (9-23); Carbon Dioxide 28 mmol/L (20-31); Chloride 102 mmol/L (98-107); Glucose 80 mg/dL (74-106); Potassium 4.8 mmol/L (3.5-5.1); Sodium 138 mmol/L (136-145); Triglycerides 61 mg/dL (< 150)
[2025-04-10 10:13] LABS: Total Protein 6.8 g/dL (5.7-8.2)
[2025-04-10 10:14] LABS: Albumin 4.6 g/dL (3.2-4.8); Bilirubin, Total 0.4 mg/dL (0.2-1.0); Calcium 10.4 mg/dL (8.7-10.4); Cholesterol 189 mg/dL (< 200); HDL Cholesterol 74 mg/dL (40-59)
== END | disposition home or self-care (01) ==
LOC: LAB 09:03
PROVIDERS: ATTEND Nurse Practitioner
DX: E78.5 Hyperlipidemia, unspecified (principal)
CPT/HCPCS: 36415; 80053; 80061

== ENCOUNTER 2025-06-16 10:28 | Emergency (ER) | payer OTHER ==
[~2025-06-16] VITALS: Ht 157.5 cm; Wt 52.6 kg
[2025-06-16 10:30] VITALS: TEMP 97.6
--- NOTE | 2025-06-16 11:25 | ED.PDOC ---
Back pain HPI HPI Comments 89-year-old female with PMHx GERD, HTN, CVA presents with a chief complaint of back pain. Patient states that she has chronic back pain and was told by her PCP that she has compression fractures in her spine. Patient mentions that she was only prescribed Tylenol and pain patches for pain relief, but that they have not been working. Patient last had an X-Ray on Tuesday at Urgent Care and was told that she has age-related degenerative changes in her spine. Patient is mainly here for pain management. Chief Complaint: Back Pain Time Seen by MD: 11:14 Reviewed Notes: Medications, Allergies Allergies: Coded Allergies: Ibuprofen (Verified Allergy, Severe, 07/09/22) Hydralazine (Verified Allergy, Unknown, severe hypotension, 08/10/23) 10mg IVP Sulfa Drugs (Verified Allergy, Unknown, 07/09/22) Morphine (Verified Adverse Reaction, Intermediate, SYNCOPE, 08/10/23) per patient: hallucinations Codeine (Verified Adverse Reaction, Unknown, 07/09/22) Home Meds Reported Medications Vit W/ Ferrous Fumara (One A Day Womens 28-0.8 & 223 mg) 1 Mis Mis, 1 TAB PO DAILY, MISC 04/17/24 Lactobacillus (PROBIOTIC) Cap, 1 TAB OR DAILY 04/17/24 Magnesium Chloride (Slow-Mag) Tab, 1 TAB OR DAILY, TAB 04/17/24 Cholecalciferol (VITAMIN D3) 2,000 Unit Tab, 5000 UNIT OR DAILY 04/17/24 Losartan Potassium (Losartan Potassium) 25 Mg Tab, 25 MG PO DAILY 04/17/24 Calcium (Calcium) 500 Mg Tab, 1000 MG PO DAILY 04/17/24 Clonidine Hydrochloride (Clonidine Hcl) 0.1 Mg Tab, 0.1 MG PO PRN, MG 07/11/23 Pantoprazole Sodium Sesquihydr (Protonix) 40 Mg Tab, 40 MG PO DAILY, #30 TAB 07/11/23 Aspirin (Aspir-Low) 81 Mg Tab, 81 MG PO DAILY, MG 07/11/23 Cranberry Extract (CRANBERRY) 600 Mg Tab, 1 TAB PO DAILY for SUPPLEMENT 05/10/22 Information Source: Patient Mode of Arrival: Ambulatory Timing: Months Duration: Since onset Location of Back pain: (B) Upper back Severity: Moderate Prehospital treatment: None Quality: Aching Onset: Spontaneous History of: Chronic Back Pain Past Medical History PAST MEDICAL HISTORY: CVA, GERD, HTN Surgical History: Appendectomy, Cholecystectomy DELIVERY DIRECTOR History: Other Family History Family History: Unobtainable Social History Smoker: Non-Smoker Alcohol: Occasionally Drugs: Denies Drug Use Lives In: Home Constitutional: denies: chills, diaphoresis, fatigue, fever, malaise, sweats, weakness, others EENTM: denies: blurred vision, double vision, ear bleeding, ear discharge, ear drainage, ear pain, ear ringing, eye pain, eye redness, hearing loss, mouth pain, mouth swelling, nasal discharge, nose bleeding, nose congestion, nose pain, photophobia, tearing, throat pain, throat swelling, voice changes, others Respiratory: denies: cough, hemoptysis, orthopnea, SOB at rest, shortness of breath, SOB with excertion, stridor, wheezing, others Cardiovascular: denies: chest pain, dizzy spells, diaphoresis, Dyspnea on exertion, edema, irregular heart beat, left arm pain, lightheadedness, palpitations, PND, syncope, others Gastrointestinal: denies: abdomen distended, abdominal pain, blood streaked bowels, constipated, diarrhea, dysphagia, difficulty swallowing, hematemesis, melena, nausea, poor appetite, poor fluid intake, rectal bleeding, rectal pain, vomiting, others Genitourinary: denies: abnormal vagina bleeding, burning, dyspareunia, dysuria, flank pain, frequency, hematuria, incontinence, pain, , vagina discharge, urgency, others Neurological: denies: dizziness, fainting, headache, left sided numbness, left sided weakness, numbness, paresthesia, pre-existing deficit, right sided numbness, right sided weakness, seizure, speech problems, tingling, tremors, weakness, others Musculoskeletal: reports: back pain; denies: gout, joint pain, joint swelling, muscle pain, muscle stiffness, neck pain, others Integumetry: denies: bruises, change in color, change in hair/nails, dryness, laceration, lesions, lumps, rash, wounds, others Allergic/Immunocompromised: denies: Difficulty Healing, Frequent Infections, Hives, Itching, others Hematologic/Lymphatic: denies: anemia, blood clots, easy bleeding, easy bruising, swollen glands, others Endocrine: denies: excessive hunger, excessive sweating, excessive thirst, excessive urination, flushing, intolerance to cold, intolerance to heat, unexplained weight gain, unexplained weight loss, others Psychiatric: denies: anxiety, bipolar disorder, depression, hopeless, panic disorder, schizophrenia, sleepless, suicidal, others All Other Systems: Reviewed and Negative Physical Exam General Appearance: Moderate Distress, Thin HEENT: Normal ENT Inspection, PERRL/EOMI, Pharynx Normal, TMs Normal Neck: Full Range of Motion, Non-Tender, Normal, Normal Inspection Respiratory: Chest Non-Tender, Lungs Clear, No Accessory Muscle Use, No Respiratory Distress, Normal Breath Sounds Cardiovascular: No Edema, No JVD, No Murmur, No Gallop, Normal Peripheral Pulses, Regular Rate/Rhythm Breast Exam: Deferred Gastrointestinal: No Organomegaly, Non Tender, No Pulsatile Mass, Normal Bowel Sounds, Soft Genitalia: Deferred Pelvic: Deferred Rectal: Deferred Extremities: No calf tenderness, Normal capillary refill, Normal inspection, Normal range of motion, Non-tender, No pedal edema Musculoskeletal : Location: Bilateral Extremity Location: Back Apperance: Normal, Deformity, Limited ROM, Tenderness: Moderate, Other (Patient with chronic back pain kyphosis and long history of osteoporosis and also history of fractured vertebrae) Neurologic: Alert, 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 Patient is trying pain medication but she is also allergic to all kinds of medications Patient will be discharged home she will need to follow up with the her PCP maybe to treat her for osteoporosis that can have the bones and the pain Time of 1ST Reevaluation: 11:44 Reevaluation 1ST: Unchanged Patient Education/Counseling: Diagnosis, Treatment, Need For Follow Up Family Education/Counseling: No Family Present SEPSIS Sepsis Screen Date sepsis recognized/suspect: Jun 16, 2025 Time Sepsis recognized/suspect: 1032 Recent Procedure: No On Antibiotic Therapy: No Respiratory Rate >20: No Heart Rate >90: No Temp<36 C (96.8 F) or >38.3 C: No SBP <90 or MAP <65 mmHG: No New Acute Mental Status Change: No Is the patient on CPAP, BIPAP,: No Vital Signs Date Time Temp Pulse Resp B/P (MAP) Pulse Ox O2 Delivery O2 Flow Rate FiO2 06/16/25 10:30 97.6 95 15 138/87 99 97.6 Departure 1 Departure Time of Disposition: 11:29 Impression: Primary Impression: Musculoskeletal pain Additional Impressions: Lumbar sprain Qualified Codes: S33.5XXA - Sprain of ligaments of lumbar spine, initial encounter Osteoporosis Qualified Codes: M80.00XA - Age-related osteoporosis with current pathological fracture, unspecified site, initial encounter for fracture Disposition: 01 HOME / SELF CARE / HOMELESS Condition: Fair Additional Instructions: Local heat or hot showers can help e-Prescriptions Tramadol Hcl (Tramadol Hcl) 50 Mg Tab 50 MG PO BID for 10 Days, #20 TAB Prov: AGNIESZKA FONSECA MD 06/16/25 Discharged With: Self Critical Care Note Critical Care Time?: No Stability Stability form required: No Heart Score Heart Score: Heart Score Response (Comments) Value History N/A 0 EKG N/A 0 Age >65 2 Risk Factors 1 or 2 risk factors 1 Troponin N/A 0 Total 3 I personally scribed for AGNIESZKA FONSECA MD ([email or web address]) on 06/16/25 at 11:25. Electronically submitted by Andrew Stafford ([email or web address]). AGNIESZKA FONSECA MD Jun 16, 2025 11:25
[2025-06-16] MEDS ORDERED: TRAM50TA2 PO (11:33)
[2025-06-16 11:49] VITALS: BP 135/69; PULSE 64; RESP 18; O2SAT 98
== END 2025-06-16 11:52 | disposition home or self-care (01) ==
LOC: ER 10:28
DX: S33.5XXA Sprain of ligaments of lumbar spine, initial encounter (principal); G89.29 Other chronic pain; M80.08XA Age-related osteoporosis with current pathological fracture, vertebra(e), initial encounter for fracture; F10.90 Alcohol use, unspecified, uncomplicated; I10 Essential (primary) hypertension; K21.9 Gastro-esophageal reflux disease without esophagitis; Z86.73 Personal history of transient ischemic attack (TIA), and cerebral infarction without residual deficits; Z79.82 Long term (current) use of aspirin; Z79.899 Other long term (current) drug therapy; Z90.49 Acquired absence of other specified parts of digestive tract; Z88.5 Allergy status to narcotic agent; Z88.2 Allergy status to sulfonamides; Z88.6 Allergy status to analgesic agent; X58.XXXA Exposure to other specified factors, initial encounter; Y93.89 Activity, other specified; Y92.89 Other specified places as the place of occurrence of the external cause; Y99.8 Other external cause status; Y90.9 Presence of alcohol in blood, level not specified

== ENCOUNTER 2025-06-28 12:18 | Inpatient (IN) | payer OTHER ==
[~2025-06-28] VITALS: Ht 154.9 cm; Wt 54.5 kg
[~2025-06-28 12:18] MED LIST changes: +TRAM50TA2 PO
[2025-06-28] MEDS ORDERED: MORPHINE SULFATE 4 MG/ML SYR/VIAL IV ONE (12:45)
--- NOTE | 2025-06-28 12:47 | ED.PDOC ---
GI ASSESSMENT HPI Comments This is a 89 year old female presenting to the ED with chief complaint of abdominal pain. Patient reports that she has been experiencing diffuse abdominal pain for the past 2 weeks with associated diarrhea since yesterday. Patient relays that her pain is currently a 3/10. Patient denies any N/V, fever, chills, dysuria, or flank pain. Chief Complaint: Abdominal Pain Time Seen by MD: 12:45 Reviewed Notes: Nurses Notes, Medications, Allergies Allergies: Coded Allergies: Ibuprofen (Verified Allergy, Severe, 07/09/22) Hydralazine (Verified Allergy, Unknown, severe hypotension, 08/10/23) 10mg IVP Sulfa Drugs (Verified Allergy, Unknown, 07/09/22) Morphine (Verified Adverse Reaction, Intermediate, SYNCOPE, 08/10/23) per patient: hallucinations Codeine (Verified Adverse Reaction, Unknown, 07/09/22) Home Meds Active Scripts Tramadol Hcl (Tramadol Hcl) 50 Mg Tab, 50 MG PO BID for 10 Days, #20 TAB Prov:AGNIESZKA FONSECA MD 06/16/25 Reported Medications Vit W/ Ferrous Fumara (One A Day Womens 28-0.8 & 223 mg) 1 Mis Mis, 1 TAB PO DAILY, MISC 04/17/24 Lactobacillus (PROBIOTIC) Cap, 1 TAB OR DAILY 04/17/24 Magnesium Chloride (Slow-Mag) Tab, 1 TAB OR DAILY, TAB 04/17/24 Cholecalciferol (VITAMIN D3) 2,000 Unit Tab, 5000 UNIT OR DAILY 04/17/24 Losartan Potassium (Losartan Potassium) 25 Mg Tab, 25 MG PO DAILY 04/17/24 Calcium (Calcium) 500 Mg Tab, 1000 MG PO DAILY 04/17/24 Clonidine Hydrochloride (Clonidine Hcl) 0.1 Mg Tab, 0.1 MG PO PRN, MG 07/11/23 Pantoprazole Sodium Sesquihydr (Protonix) 40 Mg Tab, 40 MG PO DAILY, #30 TAB 07/11/23 Aspirin (Aspir-Low) 81 Mg Tab, 81 MG PO DAILY, MG 07/11/23 Cranberry Extract (CRANBERRY) 600 Mg Tab, 1 TAB PO DAILY for SUPPLEMENT 05/10/22 Information Source: Patient Mode of Arrival: Ambulatory Timing: Weeks Duration: Since onset Prehospital treatment: None Quality: Aching Vomitus: None Stool: Watery Severity: Moderate Recent: None Recent Hx of: None Pain Location: Diffuse Modifying Factors: Nothing Associated sign and symptoms: Diarrhea, Abdominal Pain Past Medical History PAST MEDICAL HISTORY: CVA, GERD, HTN, NC Surgical History: Appendectomy, Cholecystectomy, Pacemaker Surgical History (Other): Cataract surgery 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 WORKER Hx Family History Family History: Reviewed,noncontributory to illness Social History Smoker: Non-Smoker Alcohol: Occasionally Drugs: Denies Drug Use Lives In: Home Constitutional: denies: chills, diaphoresis, fatigue, fever, malaise, sweats, weakness, others EENTM: denies: blurred vision, double vision, ear bleeding, ear discharge, ear drainage, ear pain, ear ringing, eye pain, eye redness, hearing loss, mouth pain, mouth swelling, nasal discharge, nose bleeding, nose congestion, nose pain, photophobia, tearing, throat pain, throat swelling, voice changes, others Respiratory: denies: cough, hemoptysis, orthopnea, SOB at rest, shortness of breath, SOB with excertion, stridor, wheezing, others Cardiovascular: denies: chest pain, dizzy spells, diaphoresis, Dyspnea on exertion, edema, irregular heart beat, left arm pain, lightheadedness, palpitations, PND, syncope, others Gastrointestinal: reports: abdominal pain, diarrhea; denies: abdomen distended, blood streaked bowels, constipated, dysphagia, difficulty swallowing, hematemesis, melena, nausea, poor appetite, poor fluid intake, rectal bleeding, rectal pain, vomiting, others Genitourinary: denies: abnormal vagina bleeding, burning, dyspareunia, dysuria, flank pain, frequency, hematuria, incontinence, pain, , vagina disc harge, urgency, others Neurological: denies: dizziness, fainting, headache, left sided numbness, left sided weakness, numbness, paresthesia, pre-existing deficit, right sided numbness, right sided weakness, seizure, speech problems, tingling, tremors, weakness, others Musculoskeletal: denies: back pain, gout, joint pain, joint swelling, muscle pain, muscle stiffness, neck pain, others Integumetry: denies: bruises, change in color, change in hair/nails, dryness, laceration, lesions, lumps, rash, wounds, others Allergic/Immunocompromised: denies: Difficulty Healing, Frequent Infections, Hives, Itching, others Hematologic/Lymphatic: denies: anemia, blood clots, easy bleeding, easy bruising, swollen glands, others Endocrine: denies: excessive hunger, excessive sweating, excessive thirst, excessive urination, flushing, intolerance to cold, intolerance to heat, unexplained weight gain, unexplained weight loss, others Psychiatric: denies: anxiety, bipolar disorder, depression, hopeless, panic disorder, schizophrenia, sleepless, suicidal, others All Other Systems: Reviewed and Negative Physical Exam General Appearance: Moderate Distress HEENT: Normal ENT Inspection, Pharynx Normal, TMs Normal Neck: Full Range of Motion, Non-Tender, Normal, Normal Inspection Respiratory: Chest Non-Tender, Lungs Clear, No Accessory Muscle Use, No Respiratory Distress, Normal Breath Sounds Cardiovascular: No Edema, No JVD, No Murmur, No Gallop, Normal Peripheral Pulses, Regular Rate/Rhythm Breast Exam: Deferred Gastrointestinal: Diffuse, No Pulsatile Mass, Normal Bowel Sounds, Soft, Tenderness Genitalia: Deferred Pelvic: Deferred Rectal: Deferred Extremities: No calf tenderness, Normal capillary refill, Normal inspection, Normal range of motion, Non-tender, No pedal edema Musculoskeletal : Apperance: Normal Neurologic: Alert, band saw operator II-XII nml as Tested, Motor Weakness, Normal Affect, Normal Mood, No Sensory Deficits Cerebellar Function: Normal Reflexes: Normal Skin: Dry, Normal Color, Warm Lymphatic: No Adenopathy EKG EKG : Pulse Rate (adult): 65 [place]: Normal Cardiac Rhythm: Paced Block: None Hypertrophy: None ST: Normal Was a procedure done? Was a procedure done?: No GI differential Dx Differential Diagnosis: Appendicitis, Gastritis/PUD, Gastroenteritis, Pancr eatitis, UTI X-Ray, Labs, Meds, VS Vital Signs Date Time Temp Pulse Resp B/P (MAP) Pulse Ox O2 Delivery O2 Flow Rate FiO2 06/28/25 13:04 65 06/28/25 12:35 65 06/28/25 12:26 97.6 72 16 185/86 98 97.6 Lab Test 06/28/25 15:15 06/28/25 12:59 Range/Units Urine Color Yellow Yellow Urine Clarity Turbid H Clear Urine pH 6.0 5.0-9.0 Urine Specific [place] 1.020 1.001-1.035 Urine Protein Trace H Negative Urine Ketones Negative Negative Urine Blood Negative Negative /uL Urine Nitrite Negative Negative Urine Bilirubin Negative Negative Urine Urobilinogen Normal Negative mg/dL Urine Leukocyte Esterase 2+ Negative /uL Urine RBC 8 0 - 4 /hpf Urine Microscopic WBC 16 H 0-5 /HPF Urine Squamous Epithelial Cells Few <5 /hpf Urine Bacteria None seen None Seen /hpf Urine Hyaline Casts Few 0 - 2 /lpf Urine Mucus Few None Seen Urine Yeast (Budding) Occasional None Seen /hpf Urine Glucose Normal Normal mg/dL White Blood Count 7.9 4.4-10.8 10^3/uL Red Blood Count 4.57 4.0-5.20 10^6/uL Hemoglobin 13.2 12.2-16.2 g/dL Hematocrit 38.6 36.0-46.0 % Mean Corpuscular Volume 84.4 80.0-100.0 fL Mean Corpuscular Hemoglobin 28.9 28.0-32.0 pg Mean Corpuscular Hemoglobin Concent 34.2 32.0-36.0 g/dL Red Cell Distribution Width 14.8 H 11.8-14.3 % Platelet Count 504 H 140-450 10^3/uL Mean Platelet Volume 7.9 6.9-10.8 fL Neutrophils (%) (Auto) 69.2 37.0-80.0 % Lymphocytes (%) (Auto) 18.0 10.0-50.0 % Monocytes (%) (Auto) 11.8 0.0-12.0 % Eosinophils (%) (Auto) 0.6 0.0-7.0 % Basophils (%) (Auto) 0.4 0.0-2.0 % Neutrophils # (Auto) 5.5 1.6-8.6 10 ^3/uL Lymphocytes # (Auto) 1.4 0.4-5.4 10 ^3/uL Monocytes # (Auto) 0.9 0-1.3 10 ^3/uL Eosinophils # (Auto) 0 0-0.8 10 ^3/uL Basophils # (Auto) 0 0-0.2 10 ^3/uL Nucleated Red Blood Cells 0.0 % Sodium Level 133 L 136-145 mmol/L Potassium Level 4.3 3.5-5.1 mmol/L Chloride Level 96 L 98-107 mmol/L Carbon Dioxide Level 27 20-31 mmol/L Anion Gap 10 5-15 Blood Urea Nitrogen 13 9-23 mg/dL Creatinine 0.89 0.550-1.02 mg/dL Glomerular Filtration Rate Calc 62 >90 mL/min BUN/Creatinine Ratio 14.6 10.0-20.0 Serum Glucose 115 H 74-106 mg/dL Calcium Level 10.4 8.7-10.4 mg/dL Total Bilirubin 0.5 0.2-1.0 mg/dL Aspartate Amino Transferase (AST) 32 13-40 U/L Alanine Aminotransferase (ALT) 33 7-40 U/L Alkaline Phosphatase 98 46-116 U/L Total Protein 7.6 5.7-8.2 g/dL Albumin 4.8 3.2-4.8 g/dL Lipase 43 12-53 U/L Current Medications Medications (Trade) Dose Ordered Sig/Scarlett Route Start Time Stop Time Status Last Admin Ondansetron HCl (Zofran) 4 mg ONCE ONCE IV 06/28/25 12:45 06/28/25 12:46 DC 06/28/25 14:13 Sodium Chloride 500 ml @ 500 mls/hr Q1H ONCE IVB 06/28/25 12:45 06/28/25 13:44 DC 06/28/25 14:17 Ketorolac Tromethamine (Toradol Injection) 15 mg ONCE ONCE IV 06/28/25 14:00 06/28/25 14:01 DC 06/28/25 14:13 CT Abd/Pel indicates: Limited evaluation without contrast. Gastric wall thickening. Correlate for gastritis and other etiologies. Fecal like contents within the small bowel which can be seen with ileus, hypomotility, bowel obstruction. Moderate volume stool in the colon. Atherosclerotic disease. Pulmonary emphysematous changes. Small pericardial effusion. Other findings as described. The patient was given Zofran 4 mg IV push The patient was bolused with normal saline at 500 cc The patient was also given ketorolac 15 mg IV push The CBC and chemistry panel are within normal limits except for mild hyperglyc emia The patient is being admitted to the hospitalist Images Reviewed?: Images reviewed and evaluated by me Time of 1ST Reevaluation: 17:49 Reevaluation 1ST: Unchanged Patient Education/Counseling: Diagnosis, Treatment, Prognosis Family Education/Counseling: No Family Present SEPSIS Sepsis Screen Date sepsis recognized/suspect: Jun 28, 2025 Time Sepsis recognized/suspect: 1228 Recent Procedure: No On Antibiotic Therapy: No Respiratory Rate >20: No Heart Rate >90: No Temp<36 C (96.8 F) or >38.3 C: No SBP <90 or MAP <65 mmHG: No New Acute Mental Status Change: No Is the patient on CPAP, BIPAP,: No Physician Orders Electrocardigram (06/28/25 12:30) Ct Ab Pel Wo Con-No Oral Or Iv (06/28/25 12:41) Heplock Iv (06/28/25 12:41) Family Services Specialist (06/28/25 12:41) Blood Pressure (06/28/25 12:41) Pulse Oximetry (06/28/25 12:41) Vital Signs Date Time Temp Pulse Resp B/P (MAP) Pulse Ox O2 Delivery O2 Flow Rate FiO2 06/28/25 13:04 65 06/28/25 12:35 65 06/28/25 12:26 97.6 72 16 185/86 98 97.6 Laboratory Tests Test 06/28/25 12:59 White Blood Count 7.9 10^3/uL (4.4-10.8) Medications Medications Dose Ordered Sig/Scarlett Route Start Time Stop Time Status Last Admin Dose Admin Ketorolac Tromethamine 15 mg ONCE ONCE IV 06/28/25 14:00 06/28/25 14:01 DC 06/28/25 14:13 Ondansetron HCl 4 mg ONCE ONCE IV 06/28/25 12:45 06/28/25 12:46 DC 06/28/25 14:13 Sodium Chloride 500 ml @ 500 mls/hr Q1H ONCE IVB 06/28/25 12:45 06/28/25 13:44 DC 06/28/25 14:17 Departure 1 Departure Time of Disposition: 17:50 Impression: Primary Impression: Intractable abdominal pain Disposition: ADMITTED INPATIENT Admit to: Med Surg Condition: Fair Critical Care Note Critical Care Time?: No Stability Stability form required: Yes Unstable for transfer: ED Physician Assesment (Clinical assesment) Heart Score Heart Score: Heart Score Response (Comments) Value History N/A 0 EKG N/A 0 Age N/A 0 Risk Factors N/A 0 Troponin N/A 0 Total 0 I personally scribed for NENA KEITH MD ([email or web address]) on 06/28/25 at 12:46. Electronically submitted by Jules Campbell ([email or web address]). I personally scribed for NENA KEITH MD ([email or web address]) on 06/28/25 at 13:04. Electronically submitted by Jules Campbell ([email or web address]). I personally scribed for NENA KEITH MD ([email or web address]) on 06/28/25 at 13:55. Electronically submitted by Jules Campbell ([email or web address]). NENA KEITH MD Jun 28, 2025 12:46
[2025-06-28 13:17] LABS: Hematocrit 38.6 % (36.0-46.0); Hemoglobin 13.2 g/dL (12.2-16.2); Mean Corpuscular Hemoglobin 28.9 pg (28.0-32.0); Mean Corpuscular Volume 84.4 fL (80.0-100.0); Nucleated Red Blood Cells % 0.0 %
[2025-06-28 13:35] LABS: Alanine Aminotransferase 33 U/L (7-40); Alkaline Phosphatase 98 U/L (46-116); Anion Gap 10 (5-15); BUN/Creatinine Ratio 14.6 (10.0-20.0); Bilirubin, Total 0.5 mg/dL (0.2-1.0); Blood Urea Nitrogen 13 mg/dL (9-23); Carbon Dioxide 27 mmol/L (20-31); Lipase 43 U/L (12-53); Potassium 4.3 mmol/L (3.5-5.1); Total Protein 7.6 g/dL (5.7-8.2)
[2025-06-28 13:36] LABS: Albumin 4.8 g/dL (3.2-4.8); Calcium 10.4 mg/dL (8.7-10.4); Chloride 96 mmol/L (98-107); Glucose 115 mg/dL (74-106); Sodium 133 mmol/L (136-145)
--- NOTE | 2025-06-28 13:44 | DVH ---
Indication: pain Technique: CT axial images of the abdomen and pelvis are obtained without contrast. Coronal and sagit maura reformats were obtained. Radiation Dose Information: CTDI volume is 5.21 mGy. Dose-length product is 3.92 mGy*cm Comparison: CT CT AB PEL WO CON-NO ORAL OR IV on DOS: 07/06/23 FINDINGS: There is limited interpretation of the abdomen and pelvis without administration of intravenous contr ast. Lung bases demonstrate pulmonary emphysematous changes Small pericardial effusion. Adrenal glands, spleen, pancreas, liver unremarkable in shape hepatomegaly. Gallbladder contracted / nonvisualized. No hydronephrosis, nephrolithiasis. Stomach is partially distended gastric wall thickening. Small bowel loops moderately distended. Feca l like contents within the small bowel. Colonic diverticular disease. No secondary signs for appendicitis present. Moderate volume stool wit hin the colon. Abdominal aortic atherosclerotic disease. Bladder is partially distended. No inguinal lymphadenopathy . Old left superior/ inferior pubic rami fractures. [id number] bilateral sacroiliac degenerative joint disease. Moderate to advanced thoracolumbar degenerative disc disease. IMPRESSION: Limited evaluation without contrast. Gastric wall thickening. Correlate for gastritis and other etiologies. Fecal like contents within the small bowel which can be seen with ileus, hypomotility, bowel obstruct ion. Moderate volume stool in the colon. Atherosclerotic disease. Pulmonary emphysematous changes. Small pericardial effusion. Other findings as described.
[2025-06-28] MEDS: KETOROLAC TROMETH 30 MG/ML 1ML VIAL IV ONE (14:13)
[2025-06-28] MEDS: ONDANSETRON HCL 4 MG/2 ML VIAL IV ONE (14:13)
[2025-06-28] MEDS: SODIUM CHLORIDE 0.9% 500 ML IVB ONE (14:17)
[2025-06-28 15:44] LABS: Urine Budding Yeast OCCASIONAL /hpf (None Seen); Urine Protein, UAD TRACE (Negative)
[2025-06-29] VITALS (8 sets, daily range): BP systolic 106–149; BP diastolic 60–74; PULSE 57–65; RESP 17–19; TEMP 96.6–98.8; O2SAT 96–99
[2025-06-29] MEDS ORDERED: ACETAMINOPHEN 325 MG TAB PO PRN (02:30)
[2025-06-29] MEDS ORDERED: ONDANSETRON HCL 4 MG/2 ML VIAL IV PRN (02:30)
[2025-06-29] MEDS: SODIUM CHLORIDE 0.9% 500 ML IV ONE (02:45)
[2025-06-29] MEDS: PANTOPRAZOLE 40 MG/10 ML VIAL INJ IV ONE (03:01)
[2025-06-29 04:38] LABS: Hematocrit 39.1 % (36.0-46.0); Hemoglobin 12.7 g/dL (12.2-16.2); Mean Corpuscular Hemoglobin 28.6 pg (28.0-32.0); Mean Corpuscular Volume 88.2 fL (80.0-100.0); Nucleated Red Blood Cells % 0.1 %
[2025-06-29 05:04] LABS: Alanine Aminotransferase 30 U/L (7-40); Albumin 4.1 g/dL (3.2-4.8); Alkaline Phosphatase 83 U/L (46-116); Anion Gap 9 (5-15); BUN/Creatinine Ratio 13.5 (10.0-20.0); Blood Urea Nitrogen 10 mg/dL (9-23); Calcium 9.5 mg/dL (8.7-10.4); Carbon Dioxide 21 mmol/L (20-31); Chloride 102 mmol/L (98-107); Glucose 82 mg/dL (74-106); Potassium 4.7 mmol/L (3.5-5.1); Total Protein 6.9 g/dL (5.7-8.2)
[2025-06-29 05:05] LABS: Bilirubin, Total 0.5 mg/dL (0.2-1.0)
[2025-06-29 05:19] LABS: Sodium 132 mmol/L (136-145)
[2025-06-29] MEDS ORDERED: APIX2.5T PO (05:27)
[2025-06-29] MEDS: POLYETHYLENE GLYCOL 17 GM PWDR PO ONE (05:59)
--- NOTE | 2025-06-29 07:32 | DVHHPRES ---
History of Present Illness Resident Creating Document: GINNA GALLEGOS RESIDENT History of Present Illness History of present illness: Irma Pavon is an 89-year-old female with a past medical history of hypertension, osteoarthritis, GERD, dyslipidemia, chronic AFib and sick sinus syndrome post pacemaker placement. She presented with complaints of abdominal and back pain that have persisted for the past three months. She describes the pain as sharp, on and off, with an intensity of 8 out of 10, non-radiating, and aggravated by inspiration, with no known alleviating factors. The patient reports that the pain had subsided temporarily but has worsened over the past two days. She states that she visited a doctor in February for back pain and was diagnosed with a T7T12 compression fracture and stool retention. Additionally, she complains of severe dizziness and alternating episodes of constipation and diarrhea. Past Medical History (PMH): hypertension, osteoarthritis, GERD, dyslipidemia, chronic AFib and sick sinus syndrome post pacemaker placement. Past Surgical History (PSH): Cholecystectomy, appendectomy Family history (FH): History of CAD in mother and brother EtOH: Stopped using alcohol 10 years back Smoking /Vaping: Denies smoking Recreational Drugs: Denies recreational drug use Residence: Lives with Home Medications: Protonix, Eliquis, losartan, clonidine, tramadol Allergies: Codeine, hydralazine, ibuprofen, morphine, sulfa drugs PCP: Dr. Pierson Specialist relevant to admission: Nonrelevant Review of Systems Review of Systems General: patient denies fever, fatigue, weaknes, sweating, any recent changes in appetite and weight HEENT: No headaches, visual changes, hearing loss, tinnitus, nasal congestion and discharge, and sore throat. Cardiovascular: Denies chest pain, palpitations, dyspnea on exertion, orthopnea, or claudication. Respiratory: No cough, and wheezing. Gastrointestinal: Complains of abdominal pain Genitourinary: No dysuria, hematuria, discharge, frequency, urgency, nocturia, incontinence, and urinary retention. Endocrine: No heat or cold intolerance, polydipsia, polyuria and polyphagia. Neurological: No dizziness, extremity weakness and numbness, tremors, gait disturbance, seizures, and memory impairment. Psychiatric: Denies depression, anxiety,or insomnia. Musculoskeletal: Denies neck pain, stiffness and swelling, back pain, muscle weakness, joint pain, stiffness, swelling, or limited range of motion. Skin: No rashes, itching, skin lesion, changes in hair, nail, skin texture and breast. Hematologic/Lymphatic: Denies easy bruising, bleeding tendencies, or lymph node enlargement. Allergies: Coded Allergies: Ibuprofen (Verified Allergy, Severe, 07/09/22) Hydralazine (Verified Allergy, Unknown, severe hypotension, 08/10/23) 10mg IVP Sulfa Drugs (Verified Allergy, Unknown, 07/09/22) Morphine (Verified Adverse Reaction, Intermediate, SYNCOPE, 08/10/23) per patient: hallucinations Codeine (Verified Adverse Reaction, Unknown, 07/09/22) Medications Current Medications Medications Dose Ordered Sig/Scarlett Route Start Time Stop Time Status Last Admin Dose Admin Ondansetron HCl 4 mg Q4HP PRN IV 06/29/25 02:30 Enoxaparin Sodium 40 mg DAILY SC 06/29/25 10:00 Acetaminophen 650 mg Q6HP PRN PO 06/29/25 02:30 Pantoprazole Sodium 40 mg DAILY IV 06/29/25 10:00 Clonidine HCl 0.1 mg Q4HP PRN PO 06/29/25 03:45 Exam Vital Signs Vital Signs Date Time Temp Pulse Resp B/P (MAP) Pulse Ox O2 Delivery O2 Flow Rate FiO2 06/29/25 04:57 98.8 64 18 147/74 (98) 96 98.8 06/29/25 04:52 Room Air* 0 21 Exam General Appearance: Alert, Oriented X3, Cooperative, No acute distress HEENT: Atraumatic, PERRLA, EOMI, Mucous membrane moist/pink Respiratory: Clear to auscultation, Normal air movement Cardiovascular: Regular rate, Normal S1, Normal S2, No murmurs, no chest wall tenderness Abdominal: Mild abdominal tenderness Extremities: No clubbing, No cyanosis, No edema, Normal pulses, No tenderness/swelling Skin: No rashes, No breakdown, No significant lesion Neuro: Normal gait, Normal speech, Strength at 5/5 X4 ext, Normal tone, Sensation intact, Cranial nerves 3-12 NL, Reflexes 2+ Psych/Mental Status: Mental status NL, Mood NL Labs/Xrays Labs Test 06/29/25 04:20 06/28/25 15:15 06/28/25 12:59 Range/Units White Blood Count 7.2 4.4-10.8 10^3/uL Red Blood Count 4.44 4.0-5.20 10^6/uL Hemoglobin 12.7 12.2-16.2 g/dL Hematocrit 39.1 36.0-46.0 % Mean Corpuscular Volume 88.2 # 80.0-100.0 fL Mean Corpuscular Hemoglobin 28.6 28.0-32.0 pg Mean Corpuscular Hemoglobin Concent 32.5 32.0-36.0 g/dL Red Cell Distribution Width 15.3 H 11.8-14.3 % Platelet Count 344 140-450 10^3/uL Mean Platelet Volume 7.9 6.9-10.8 fL Neutrophils (%) (Auto) 65.6 37.0-80.0 % Lymphocytes (%) (Auto) 18.2 10.0-50.0 % Monocytes (%) (Auto) 13.8 H 0.0-12.0 % Eosinophils (%) (Auto) 1.9 0.0-7.0 % Basophils (%) (Auto) 0.5 0.0-2.0 % Neutrophils # (Auto) 4.7 1.6-8.6 10 ^3/uL Lymphocytes # (Auto) 1.3 0.4-5.4 10 ^3/uL Monocytes # (Auto) 1.0 0-1.3 10 ^3/uL Eosinophils # (Auto) 0.1 0-0.8 10 ^3/uL Basophils # (Auto) 0 0-0.2 10 ^3/uL Nucleated Red Blood Cells 0.1 % Sodium Level 132 L 136-145 mmol/L Potassium Level 4.7 3.5-5.1 mmol/L Chloride Level 102 98-107 mmol/L Carbon Dioxide Level 21 20-31 mmol/L Anion Gap 9 5-15 Blood Urea Nitrogen 10 9-23 mg/dL Creatinine 0.74 0.550-1.02 mg/dL Glomerular Filtration Rate Calc 77 >90 mL/min BUN/Creatinine Ratio 13.5 10.0-20.0 Serum Glucose 82 74-106 mg/dL Calcium Level 9.5 8.7-10.4 mg/dL Total Bilirubin 0.5 0.2-1.0 mg/dL Aspartate Amino Transferase (AST) 32 13-40 U/L Alanine Aminotransferase (ALT) 30 7-40 U/L Alkaline Phosphatase 83 46-116 U/L Troponin I High Sensitivity 17 </=34 ng/L Total Protein 6.9 5.7-8.2 g/dL Albumin 4.1 3.2-4.8 g/dL Urine Color Yellow Yellow Urine Clarity Turbid H Clear Urine pH 6.0 5.0-9.0 Urine Specific [place] 1.020 1.001-1.035 Urine Protein Trace H Negative Urine Ketones Negative Negative Urine Blood Negative Negative /uL Urine Nitrite Negative Negative Urine Bilirubin Negative Negative Urine Urobilinogen Normal Negative mg/dL Urine Leukocyte Esterase 2+ Negative /uL Urine RBC 8 0 - 4 /hpf Urine Microscopic WBC 16 H 0-5 /HPF Urine Squamous Epithelial Cells Few <5 /hpf Urine Bacteria None seen None Seen /hpf Urine Hyaline Casts Few 0 - 2 /lpf Urine Mucus Few None Seen Urine Yeast (Budding) Occasional None Seen /hpf Urine Glucose Normal Normal mg/dL Lipase 43 12-53 U/L SEPSIS Sepsis Screen Date sepsis recognized/suspect: Jun 29, 2025 Time Sepsis recognized/suspect: 224 Recent Procedure: No On Antibiotic Therapy: No Respiratory Rate >20: No Heart Rate >90: No Temp<36 C (96.8 F) or >38.3 C: No SBP <90 or MAP <65 mmHG: No New Acute Mental Status Change: No Is the patient on CPAP, BIPAP,: No Physician Orders Admit (06/29/25 02:19) Allergies (06/29/25 02:19) Code Status (06/29/25 02:19) Ondansetron Hcl (Zofran) (06/29/25 02:30) Enoxaparin Sodium (Lovenox) (06/29/25 10:00) Fall Risk Precautions In Place QSHIFT (06/29/25 02:19) Condition: Fair (06/29/25 02:19) Acetaminophen Tablet (Tylenol Tablet) (06/29/25 02:30) Communication Order (06/29/25 02:39) Pantoprazole (Protonix) (06/29/25 10:00) Npo Except Ice Chips (06/29/25 02:39) Clonidine Hcl Tablet (Catapres Tablet) (06/29/25 03:45) Electrocardigram (06/29/25 05:06) B-Type Natriuretic Peptide (06/29/25 05:06) Orthostatic Vital Signs (06/29/25 05:06) Mrsa Screen (06/29/25 05:22) Vital Signs Date Time Temp Pulse Resp B/P (MAP) Pulse Ox O2 Delivery O2 Flow Rate FiO2 06/29/25 04:57 98.8 64 18 147/74 (98) 96 98.8 06/29/25 04:52 19 Room Air* 0 21 06/29/25 04:52 147/60 (89) 06/29/25 04:31 142/61 06/29/25 04:30 67 12 142/61 (88) 97 06/29/25 04:00 68 16 173/77 (109) 98 06/29/25 03:46 181/79 06/29/25 02:25 Room Air* 0 21 06/29/25 02:25 97.1 66 12 163/78 (106) 98 97.1 06/29/25 00:55 97.8 62 14 186/89 (121) 97 97.8 Laboratory Tests Test 06/29/25 04:20 White Blood Count 7.2 10^3/uL (4.4-10.8) Medications Medications Dose Ordered Sig/Scarlett Route Start Time Stop Time Status Last Admin Dose Admin Clonidine HCl 0.2 mg ONCE ONCE PO 06/29/25 03:45 06/29/25 03:46 DC 06/29/25 03:46 0.2 MG Pantoprazole Sodium 40 mg ONCE ONCE IV 06/29/25 02:45 06/29/25 02:47 DC 06/29/25 03:01 40 MG Polyethylene Glycol 17 gm ONCE ONCE PO 06/29/25 05:15 06/29/25 05:16 DC 06/29/25 05:59 17 GM Assessment/Plan Assessment/Plan Assessment and plan # Acute gastritis - IV Protonix - IV fluids - Pain Medications # Hypertensive crisis - Clonidine - Monitor blood pressure levels - Continue home medications # History of sick sinus syndrome, on pacemaker - Monitor EKG # GERD - IV Protonix # Osteoarthritis - Outpatient follow-up with PCP on discharge PUD prophylaxis: protonix 40mg DVT prophylaxis: Levonox 40mg Barriers to discharge: Medical diagnosis and management in progress. Patient lives with family. Independent for ADL. PCP: Dr. Pierson Specialist Relevent To Admission: Nonrelevant Case discussed with Dr. Wooten. Code Status: Chemical Code. Discussed in detail with the patient and , want to be DNR/DNI. Paperwork requested from ED nursing staff. Complex patient care discussion needed. Spend total 37 minutes for bedside assessment, case discussion and management. Plan discussed with: Patient My Orders Orders - GINNA GALLEGOS Procedure Category Date Status Time Admit ADMIT 06/29/25 Transmitted 02:19 Allergies YANI 06/29/25 In Process 02:19 Code Status CODE 06/29/25 Transmitted 02:19 Ondansetron Hcl PHA 06/29/25 In Process (Zofran) 02:30 Enoxaparin Sodium PHA 06/29/25 In Process (Lovenox) 10:00 Fall Risk Precautions YANI 06/29/[address] 02:19 Condition: Fair YANI 06/29/25 In Process 02:19 Acetaminophen Tablet PHA 06/29/25 In Process (Tylenol Tablet) 02:30 Communication Order ORDERS 06/29/25 Transmitted 02:39 Pantoprazole PHA 06/29/25 In Process (Protonix) 10:00 Npo Except Ice Chips YANI 06/29/25 In Process 02:39 Date of Service: Jun 29, 2025 Billing Provider: GINNA GALLEGOS Common Visit Codes: [id number] INP/OBS CARE (HIGH) Secondary Visit Codes: [id number] CARE PLAN 30 MINUTES GINNA GALLEGOS Jun 29, 2025 07:32
[2025-06-29] MEDS: PANTOPRAZOLE 40 MG/10 ML VIAL INJ IV SCH (09:10)
[2025-06-29] MEDS: ENOXAPARIN SOD 40 MG/0.4 ML SYRINGE SC SCH (09:10)
[2025-06-29] MEDS ORDERED: GASTROGRAFIN 120 ML SOL ONE (13:54)
[2025-06-29] MEDS ORDERED: ceFAZolin 1GM/50ML 50 ML IV SCH (14:00)
[2025-06-29] MEDS: ceFAZolin 1GM/50ML 50 ML IV SCH (15:00)
[2025-06-29] MEDS: D5W/SOD CHL 0.45% 1,000 ML IV SCH (17:14)
--- NOTE | 2025-06-29 17:55 | DVHINCON2 ---
Consultation - Surgical Date Seen: Jun 29, 2025 Referring Physician Reason for Consultation Ileus? History of Present Illness History of Present Illness Mrs. Pavon is a 89-year-old female who presented to the hospital due to 2 weeks of abdominal distention, nausea, but no vomiting, and liquid bowel movements. Patient states that she normally runs very constipated and 2 weeks ago she went to her PCP and she got prescribed MiraLax and stool softeners and she has been doing that daily for the past 2 weeks. This increase in GI cathartic usage coincides with a developing of her symptoms. Denies any bloody bowel movements. Denies fevers, chills, changes in urinary habits, being recently sick, eating something out of the ordinary. She had a upper and lower endoscopy many years ago, no issues. Denies any recent weight loss. Past Medical/Surgical History Past Medical/Surgical History PMH hypertension,CHF, GERD, AFib PSH open cholecystectomy, appendectomy, pacemaker Family and Social History Family and Social History Noncontributory Allergies and medications Allergies: Coded Allergies: Ibuprofen (Verified Allergy, Severe, 07/09/22) Hydralazine (Verified Allergy, Unknown, severe hypotension, 08/10/23) 10mg IVP Sulfa Drugs (Verified Allergy, Unknown, 07/09/22) Morphine (Verified Adverse Reaction, Intermediate, SYNCOPE, 08/10/23) per patient: hallucinations Codeine (Verified Adverse Reaction, Unknown, 07/09/22) Home Meds Active Scripts Tramadol Hcl (Tramadol Hcl) 50 Mg Tab, 50 MG PO BID for 10 Days, #20 TAB Prov:AGNIESZKA FONSECA MD 06/16/25 Reported Medications Apixaban Base (ELIQUIS) 2.5 Mg Tab, 2.5 MG PO BID, TAB 06/29/25 Vit W/ Ferrous Fumara (One A Day Womens 28-0.8 & 223 mg) 1 Mis Mis, 1 TAB PO DAILY, MISC 04/17/24 Lactobacillus (PROBIOTIC) Cap, 1 TAB OR DAILY 04/17/24 Magnesium Chloride (Slow-Mag) Tab, 1 TAB OR DAILY, TAB 04/17/24 Cholecalciferol (VITAMIN D3) 2,000 Unit Tab, 5000 UNIT OR DAILY 04/17/24 Losartan Potassium (Losartan Potassium) 25 Mg Tab, 25 MG PO DAILY 04/17/24 Calcium (Calcium) 500 Mg Tab, 1000 MG PO DAILY 04/17/24 Clonidine Hydrochloride (Clonidine Hcl) 0.1 Mg Tab, 0.1 MG PO PRN, MG 07/11/23 Pantoprazole Sodium Sesquihydr (Protonix) 40 Mg Tab, 40 MG PO DAILY, #30 TAB 07/11/23 Aspirin (Aspir-Low) 81 Mg Tab, 81 MG PO DAILY, MG 07/11/23 Cranberry Extract (CRANBERRY) 600 Mg Tab, 1 TAB PO DAILY for SUPPLEMENT 05/10/22 Review of systems Review of Systems: HEENT:Normal, CVS:Normal, RESPIRATORY:Normal, GI:Abnormal (Suffers from chronic constipation, see HPI), :Normal, MSK:Normal, NEURO:Abnormal (Back pain due to thoracic level fractures spine) Examination Vital signs Vital Signs Date Time Temp Pulse Resp B/P (MAP) Pulse Ox O2 Delivery O2 Flow Rate FiO2 06/29/25 13:00 98.2 63 17 118/70 (86) 99 98.2 06/29/25 08:00 Room Air* 0 21 Medications Current Medications Medications (Trade) Dose Ordered Sig/Scarlett Route PRN Reason Start Time Stop Time Status Last Admin Ondansetron HCl (Zofran) 4 mg Q4HP PRN IV NAUSEA / VOMITING 06/29/25 02:30 Enoxaparin Sodium (Lovenox) 40 mg DAILY SC 06/29/25 10:00 06/29/25 09:10 Acetaminophen (Tylenol Tablet) 650 mg Q6HP PRN PO PAIN SCALE 1-3 OR TEMP>100.4 06/29/25 02:30 Pantoprazole Sodium (Protonix) 40 mg DAILY IV 06/29/25 10:00 06/29/25 09:10 Clonidine HCl (Catapres Tablet) 0.1 mg Q4HP PRN PO SBP>150 06/29/25 03:45 Dextrose/Sodium Chloride 1,000 ml @ 75 mls/hr [id number] IV 06/29/25 13:45 06/29/25 17:14 Cefazolin Sodium 50 ml @ 100 mls/hr Q8HR IV 06/29/25 14:00 06/29/25 13:52 DC Cefazolin Sodium 50 ml @ 100 mls/hr Q12H IV 06/29/25 14:00 Laboratory Labs Test 06/29/25 04:20 06/28/25 15:15 06/28/25 12:59 Range/Units White Blood Count 7.2 4.4-10.8 10^3/uL Red Blood Count 4.44 4.0-5.20 10^6/uL Hemoglobin 12.7 12.2-16.2 g/dL Hematocrit 39.1 36.0-46.0 % Mean Corpuscular Volume 88.2 # 80.0-100.0 fL Mean Corpuscular Hemoglobin 28.6 28.0-32.0 pg Mean Corpuscular Hemoglobin Concent 32.5 32.0-36.0 g/dL Red Cell Distribution Width 15.3 H 11.8-14.3 % Platelet Count 344 140-450 10^3/uL Mean Platelet Volume 7.9 6.9-10.8 fL Neutrophils (%) (Auto) 65.6 37.0-80.0 % Lymphocytes (%) (Auto) 18.2 10.0-50.0 % Monocytes (%) (Auto) 13.8 H 0.0-12.0 % Eosinophils (%) (Auto) 1.9 0.0-7.0 % Basophils (%) (Auto) 0.5 0.0-2.0 % Neutrophils # (Auto) 4.7 1.6-8.6 10 ^3/uL Lymphocytes # (Auto) 1.3 0.4-5.4 10 ^3/uL Monocytes # (Auto) 1.0 0-1.3 10 ^3/uL Eosinophils # (Auto) 0.1 0-0.8 10 ^3/uL Basophils # (Auto) 0 0-0.2 10 ^3/uL Nucleated Red Blood Cells 0.1 % Sodium Level 132 L 136-145 mmol/L Potassium Level 4.7 3.5-5.1 mmol/L Chloride Level 102 98-107 mmol/L Carbon Dioxide Level 21 20-31 mmol/L Anion Gap 9 5-15 Blood Urea Nitrogen 10 9-23 mg/dL Creatinine 0.74 0.550-1.02 mg/dL Glomerular Filtration Rate Calc 77 >90 mL/min BUN/Creatinine Ratio 13.5 10.0-20.0 Serum Glucose 82 74-106 mg/dL Calcium Level 9.5 8.7-10.4 mg/dL Total Bilirubin 0.5 0.2-1.0 mg/dL Aspartate Amino Transferase (AST) 32 13-40 U/L Alanine Aminotransferase (ALT) 30 7-40 U/L Alkaline Phosphatase 83 46-116 U/L Troponin I High Sensitivity 17 </=34 ng/L B-Type Natriuretic Peptide 132.58 0-100 pg/mL Total Protein 6.9 5.7-8.2 g/dL Albumin 4.1 3.2-4.8 g/dL Urine Color Yellow Yellow Urine Clarity Turbid H Clear Urine pH 6.0 5.0-9.0 Urine Specific [place] 1.020 1.001-1.035 Urine Protein Trace H Negative Urine Ketones Negative Negative Urine Blood Negative Negative /uL Urine Nitrite Negative Negative Urine Bilirubin Negative Negative Urine Urobilinogen Normal Negative mg/dL Urine Leukocyte Esterase 2+ Negative /uL Urine RBC 8 0 - 4 /hpf Urine Microscopic WBC 16 H 0-5 /HPF Urine Squamous Epithelial Cells Few <5 /hpf Urine Bacteria None seen None Seen /hpf Urine Hyaline Casts Few 0 - 2 /lpf Urine Mucus Few None Seen Urine Yeast (Budding) Occasional None Seen /hpf Urine Glucose Normal Normal mg/dL Lipase 43 12-53 U/L Examination: GENERAL:Normal, ABDOMEN:Abnormal (Slight distention, paramedian scar well healed, soft, depressible, nontender, dull to percussion) Problem List/Assessment/Plan Problems: (1) Constipated Assessment and Plan Mrs. Pavon is a 89-year-old female who presented to the hospital with 2 weeks of abdominal pain, bloating, nausea. Her symptoms coincide with the increase usage of MiraLax and stool softeners. I was consulted for the possibility ileus. CT was evaluated and IC heavy stool burden throughout the colon diarrheal disease in the small bowel and a thick stomach wall. I do not think the patient has an ileus she has been having bowel movements daily, liquid. That she might benefit from enemas PO cathartic agents. Regards to the stomach wall thickness it appears abnormal but at the same time there is no IV contrast to properly see the wall, she may benefit from an EGD. 1. Small bowel follow-through really not necessary patient does not have a small-bowel obstruction, no ileus, I think she is has a functional motility problem as she is chronically constipated. The contrast from the small bowel follow-through may help in cleaning her GI tract up. 2. Recommend enemas to help with the colonic burden 3. She might benefit from EGD to look at the stomach wall. 4. I will sign off please call with any questions or concerns Plan discussed with Plan discussed with: Patient, Spouse Visit Coding Surgery Date of Service if different f: Jun 29, 2025 Billing Provider: MARIAH REBOLLEDO MD Surgery Visit Codes: 69022 - INP CONSULT <110 MIN MARIAH REBOLLEDO MD Jun 29, 2025 17:55
--- NOTE | 2025-06-29 17:58 | DVH ---
Procedure: XY SMALL BOWEL SERIES-W GASTROGRA Exam Date: 06/29/2025 05:12 PM Reason for study/Clinical History: abdominal pain- ileus vs partail sbo Comparison Study: None Technique: Single contrast small bowel series performed. Fluoroscopy time: Minutes seconds Findings: Initial flag car driver view of the abdomen and pelvis appears demonstrates no acute process. Contrast is identified within the colon by . This represents a normal small bowel transit time. Mildly prominent small bowel loops. Contrast is seen in the colon. Normal mucosal pattern. No wilver dence of small bowel obstruction, stricture, or mucosal abnormality. IMPRESSION: 1. Possible ileus type bowel pattern END IMPRESSION:
[2025-06-30] VITALS (7 sets, daily range): BP systolic 113–160; BP diastolic 52–67; PULSE 62–66; RESP 18–20; TEMP 97.6–98.6; O2SAT 95–100
--- NOTE | 2025-06-30 10:49 | DVHINCON2 ---
Date of service: Jun 30, 2025 Referring Physician Robbin Feliciano Reason for Consultation Abdominal pain Abnormal CT scan History of Present Illness Patient is a 89-year-old female with a past medical history significant for hypertension, atrial fibrillation, GERD, history of constipation, history of pacemaker, admitted with abdominal pain. Patient was seen by her primary care physician and given laxatives. Subsequently patient developed significant abdominal pain and was admitted with these symptoms and possible ileus. CT scan shows gastric wall thickening. Patient has not had any hematemesis or bleeding. Hemoglobin is normal. GI consultation was obtained for evaluation. Past Medical History As above Past Surgical History Cholecystectomy Pacemaker Appendectomy Family History: Ischemic heart disease G8 MOTHER G8 FATHER Family History No gastrointestinal diseases or malignancies Social History No tobacco or alcohol abuse Allergies: Coded Allergies: Ibuprofen (Verified Allergy, Severe, 07/09/22) Hydralazine (Verified Allergy, Unknown, severe hypotension, 08/10/23) 10mg IVP Sulfa Drugs (Verified Allergy, Unknown, 07/09/22) Morphine (Verified Adverse Reaction, Intermediate, SYNCOPE, 08/10/23) per patient: hallucinations Codeine (Verified Adverse Reaction, Unknown, 07/09/22) Home Meds Active Scripts Tramadol Hcl (Tramadol Hcl) 50 Mg Tab, 50 MG PO BID for 10 Days, #20 TAB Prov:AGNIESZKA FONSECA MD 06/16/25 Reported Medications Apixaban Base (ELIQUIS) 2.5 Mg Tab, 2.5 MG PO BID, TAB 06/29/25 Vit W/ Ferrous Fumara (One A Day Womens 28-0.8 & 223 mg) 1 Mis Mis, 1 TAB PO DAILY, MISC 04/17/24 Lactobacillus (PROBIOTIC) Cap, 1 TAB OR DAILY 04/17/24 Magnesium Chloride (Slow-Mag) Tab, 1 TAB OR DAILY, TAB 04/17/24 Cholecalciferol (VITAMIN D3) 2,000 Unit Tab, 5000 UNIT OR DAILY 04/17/24 Losartan Potassium (Losartan Potassium) 25 Mg Tab, 25 MG PO DAILY 04/17/24 Calcium (Calcium) 500 Mg Tab, 1000 MG PO DAILY 04/17/24 Clonidine Hydrochloride (Clonidine Hcl) 0.1 Mg Tab, 0.1 MG PO PRN, MG 07/11/23 Pantoprazole Sodium Sesquihydr (Protonix) 40 Mg Tab, 40 MG PO DAILY, #30 TAB 07/11/23 Aspirin (Aspir-Low) 81 Mg Tab, 81 MG PO DAILY, MG 07/11/23 Cranberry Extract (CRANBERRY) 600 Mg Tab, 1 TAB PO DAILY for SUPPLEMENT 05/10/22 Current Medications Current Medications Medications (Trade) Dose Ordered Sig/Scarlett Route PRN Reason Start Time Stop Time Status Last Admin Dextrose/Sodium Chloride 1,000 ml @ 75 mls/hr [id number] IV 06/29/25 13:45 06/29/25 17:14 Cefazolin Sodium 50 ml @ 100 mls/hr Q8HR IV 06/29/25 14:00 06/29/25 13:52 DC Cefazolin Sodium 50 ml @ 100 mls/hr Q12H IV 06/29/25 14:00 06/30/25 01:14 Review of Systems As per HPI Vital Signs Vital Signs Date Time Temp Pulse Resp B/P (MAP) Pulse Ox O2 Delivery O2 Flow Rate FiO2 06/30/25 08:53 98.5 66 20 126/52 (76) 95 98.5 06/29/25 20:00 Room Air* 0 21 Physical Exam General: Well-developed well-nourished HEENT: NC/AT EOMI PERRLA O/P clear, no JVD or cervical lymphadenopathy, no scleral icterus Heart: Regular rate and rhythm, no murmurs rubs or gallops Lungs: Clear to auscultation bilaterally, no wheezes rales or rhonchi Abdomen: Soft, nontender, nondistended, no organomegaly, normoactive bowel sounds Extremity: No clubbing cyanosis or edema, no rashes or bruises Neuro: Cranial nerves 2-12 grossly intact, moves all four extremities, no asterixis Labs/Diagnostic Data Labs Test 06/29/25 04:20 06/28/25 15:15 06/28/25 12:59 Range/Units White Blood Count 7.2 4.4-10.8 10^3/uL Red Blood Count 4.44 4.0-5.20 10^6/uL Hemoglobin 12.7 12.2-16.2 g/dL Hematocrit 39.1 36.0-46.0 % Mean Corpuscular Volume 88.2 # 80.0-100.0 fL Mean Corpuscular Hemoglobin 28.6 28.0-32.0 pg Mean Corpuscular Hemoglobin Concent 32.5 32.0-36.0 g/dL Red Cell Distribution Width 15.3 H 11.8-14.3 % Platelet Count 344 140-450 10^3/uL Mean Platelet Volume 7.9 6.9-10.8 fL Neutrophils (%) (Auto) 65.6 37.0-80.0 % Lymphocytes (%) (Auto) 18.2 10.0-50.0 % Monocytes (%) (Auto) 13.8 H 0.0-12.0 % Eosinophils (%) (Auto) 1.9 0.0-7.0 % Basophils (%) (Auto) 0.5 0.0-2.0 % Neutrophils # (Auto) 4.7 1.6-8.6 10 ^3/uL Lymphocytes # (Auto) 1.3 0.4-5.4 10 ^3/uL Monocytes # (Auto) 1.0 0-1.3 10 ^3/uL Eosinophils # (Auto) 0.1 0-0.8 10 ^3/uL Basophils # (Auto) 0 0-0.2 10 ^3/uL Nucleated Red Blood Cells 0.1 % Sodium Level 132 L 136-145 mmol/L Potassium Level 4.7 3.5-5.1 mmol/L Chloride Level 102 98-107 mmol/L Carbon Dioxide Level 21 20-31 mmol/L Anion Gap 9 5-15 Blood Urea Nitrogen 10 9-23 mg/dL Creatinine 0.74 0.550-1.02 mg/dL Glomerular Filtration Rate Calc 77 >90 mL/min BUN/Creatinine Ratio 13.5 10.0-20.0 Serum Glucose 82 74-106 mg/dL Calcium Level 9.5 8.7-10.4 mg/dL Total Bilirubin 0.5 0.2-1.0 mg/dL Aspartate Amino Transferase (AST) 32 13-40 U/L Alanine Aminotransferase (ALT) 30 7-40 U/L Alkaline Phosphatase 83 46-116 U/L Troponin I High Sensitivity 17 </=34 ng/L B-Type Natriuretic Peptide 132.58 0-100 pg/mL Total Protein 6.9 5.7-8.2 g/dL Albumin 4.1 3.2-4.8 g/dL Urine Color Yellow Yellow Urine Clarity Turbid H Clear Urine pH 6.0 5.0-9.0 Urine Specific [place] 1.020 1.001-1.035 Urine Protein Trace H Negative Urine Ketones Negative Negative Urine Blood Negative Negative /uL Urine Nitrite Negative Negative Urine Bilirubin Negative Negative Urine Urobilinogen Normal Negative mg/dL Urine Leukocyte Esterase 2+ Negative /uL Urine RBC 8 0 - 4 /hpf Urine Microscopic WBC 16 H 0-5 /HPF Urine Squamous Epithelial Cells Few <5 /hpf Urine Bacteria None seen None Seen /hpf Urine Hyaline Casts Few 0 - 2 /lpf Urine Mucus Few None Seen Urine Yeast (Budding) Occasional None Seen /hpf Urine Glucose Normal Normal mg/dL Lipase 43 12-53 U/L Assessment 1. Abdominal pain 2. Constipation 3. Abnormal CT scan showing gastric wall thickening Problems(with codes): (1) Gastroenteritis (2) Hypertension (3) Intractable abdominal pain (4) Constipated Plan/Recommendation 1. Diet as tolerated 2. Caution with laxative 3. Consider outpatient EGD, patient has no signs of bleeding and pain is imp roving she has a normal hemoglobin 4. I will be signing off and I will have another GI member follow the patient Plan discussed with: Patient DANIEL PARKER MD Jun 30, 2025 10:49
--- NOTE | 2025-06-30 16:12 | DVHPN2 ---
Subjective looks more perky today/states abdominal pain is better/had multiple bm/ Changes from previous H/P or p: No Changes Objective Vitals Vital Signs Date Time Temp Pulse Resp B/P (MAP) Pulse Ox O2 Delivery O2 Flow Rate FiO2 06/30/25 12:20 98.2 66 20 140/52 (81) 100 98.2 06/30/25 08:05 Room Air* 0 21 Intake/Output Intake and Output 06/30/25 07:00 Intake Total 100 ml Balance 100 ml Intake Oral 0 ml IV Total 100 ml # Voids 2 # Bowel Movements 4 General Appearance: Alert, Oriented X3, Cooperative, No acute distress Lungs: Clear to auscultation, Normal air movement Cardiovascular: Regular rate, Normal S1, Normal S2 Abdomen: Normal bowel sounds, Soft, No tenderness, No hepatospenomegaly Musculoskeletal: Normal sensory function, Normal motor function Neuro: Normal gait, Normal speech, Strength at 5/5 X4 ext, Normal tone, S ensation intact, Cranial nerves 3-12 NL Lymph: Lymphadenopathy Psych/Mental Status: Mental status NL, Mood NL Medications Current Medications Medications Dose Ordered Sig/Scarlett Route Start Time Stop Time Status Last Admin Dose Admin Ondansetron HCl 4 mg Q4HP PRN IV 06/29/25 02:30 Enoxaparin Sodium 40 mg DAILY SC 06/29/25 10:00 06/30/25 09:23 40 MG Acetaminophen 650 mg Q6HP PRN PO 06/29/25 02:30 Pantoprazole Sodium 40 mg DAILY IV 06/29/25 10:00 06/30/25 09:23 40 MG Clonidine HCl 0.1 mg Q4HP PRN PO 06/29/25 03:45 Dextrose/Sodium Chloride 1,000 ml @ 75 mls/hr [id number] IV 06/29/25 13:45 06/29/25 17:14 75 MLS/HR Cefazolin Sodium 50 ml @ 100 mls/hr Q12H IV 06/29/25 14:00 06/30/25 14:12 100 MLS/HR Laboratory Results Laboratory Tests 06/29/25 04:20 Urinalysis Test 06/28/25 15:15 Urine Color Yellow (Yellow) Urine Clarity Turbid (Clear) H Urine pH 6.0 (5.0-9.0) Urine Specific [place] 1.020 (1.001-1.035) Urine Protein Trace (Negative) H Urine Ketones Negative (Negative) Urine Blood Negative /uL (Negative) Urine Nitrite Negative (Negative) Urine Bilirubin Negative (Negative) Urine Urobilinogen Normal mg/dL (Negative) Urine Leukocyte Esterase 2+ /uL (Negative) Urine RBC 8 /hpf (0 - 4) Urine Microscopic WBC 16 /HPF (0-5) H Urine Squamous Epithelial Cells Few /hpf (<5) Urine Bacteria None seen /hpf (None Seen) Urine Hyaline Casts Few /lpf (0 - 2) Urine Mucus Few (None Seen) Urine Yeast (Budding) Occasional /hpf (None Urine Glucose Normal mg/dL (Normal) Microbiology Microbiology Date/Time Source Procedure Growth Status 06/29/25 09:20 Nose MRSA Screen - Final Complete Labs and/or images reviewed: Labs reviewed by me, Image(s) reviewed by me Assessment/Plan Assessment/Plan ileus- resolved//tolerating liquids/per gi egd in am- lumbar compression fracture sequelae-pain control debility possible dc in am after egd //diet advancement before dc Plan discussed with: Patient, Other My Orders Orders - JONO KELLY MD Procedure Category Date Status Time Clear Liq Diet DIET 06/30/25 Transmitted Dinner Date of Service: Jun 30, 2025 Billing Provider: JONO KELLY MD Common Visit Codes: 88562-[id number] INP/OBS CARE(LOW) JONO KELLY MD Jun 30, 2025 16:12
[2025-07-01] VITALS (10 sets, daily range): BP systolic 122–180; BP diastolic 69–92; PULSE 60–65; RESP 10–18; TEMP 96.4–98.2; O2SAT 96–99
[2025-07-01 06:42] LABS: Hematocrit 32.4 % (36.0-46.0); Hemoglobin 11.4 g/dL (12.2-16.2); Mean Corpuscular Hemoglobin 29.4 pg (28.0-32.0); Mean Corpuscular Volume 83.7 fL (80.0-100.0)
[2025-07-01 07:53] LABS: Anisocytosis Slight; Total Cells Counted 100.0 (100)
--- NOTE | 2025-07-01 10:19 | DVH ---
EXAM: XY CHEST PORTABLE Indication: Pain Technique: Single frontal view of the chest was obtained Comparison: CT CHEST WITHOUT CONTRAST on DOS: 06/13/24, XY CHEST TWO VIEWS ROUTINE on DOS: 04/17/24, XY C HEST PORTABLE on DOS: 08/07/23, XY CHEST PORTABLE on DOS: 07/13/23, XY CHEST PORTABLE on DOS: 07/10/23 FINDINGS: Lines and Tubes: Cardiac pacemaker projects over left chest wall. Lungs: No focal consolidation. Pleura: No effusion. No pneumothorax. Cardiomediastinal contours: Unremarkable. Atherosclerotic vascular calcifications of the thoracic ao rta are noted. Bones: No acute osseous abnormality. IMPRESSION: No acute cardiopulmonary disease.
--- NOTE | 2025-07-01 12:14 | ECG ---
[facility] Test Date: 2025-06-28 Test Time: 12:35:24 Pat Name: JENN GRIMM Department: ED Room: 0277 B Gender: F Irrigator Gravity Flow: joi : 1935 Requested By: NENA KEITH Order Number: [id number] Reading MD: Cruzito Kidd Measurements Intervals [place] Rate: 65 P: 0 OR: 177 QRS: 235 QRSD: 95 T: 97 QT: 394 QTc: 410 Interpretive Statements Right and left arm electrode reversal, interpretation assumes no reversal Atrial-paced rhythm Anteroseptal infarct, age indeterminate Electronically Signed On 07-01-2025 18:45:40 PDT by Cruzito Kidd Please click the below link to view image of tracing.
[2025-07-01] MEDS ORDERED: fentaNYL CITRATE 100 MCG/2 ML VL ONE (12:17)
[2025-07-01] MEDS ORDERED: MIDAZOLAM HCL 2MG/2ML 2ml VIAL (1mg/ml) ONE (12:17)
[2025-07-01] MEDS ORDERED: ONDANSETRON HCL 4 MG/2 ML VIAL ONE (12:17)
[2025-07-01] MEDS ORDERED: PROPOFOL 10 MG/ML 20 ML IV ONE (12:17)
[2025-07-01] MEDS ORDERED: GLYCOPYRROLATE 0.2 MG/ML 1ML VIAL ONE (12:17)
--- NOTE | 2025-07-01 12:46 | DVHOP2 ---
Operative Report DATE OF OPERATION: 07/01/25 PROCEDURE: Upper Endoscopy with biopsy. PREOPERATIVE INDICATION: The patient is a 89 -year-old female undergoing endoscopy for epigastric pain POSTOPERATIVE DIAGNOSES: 1. [id number] gastritis involving the antrum and distal body of the stomach with hyperemia erythema and some flecks of old blood 2. 1-2 cm sliding-type hiatal hernia otherwise normal examination up to the 2nd and 3rd part of the duodenum 3. Suggestion of extrinsic compression in the midbody of the stomach PROCEDURE PERFORMED BY: Prosper Becerra GI NURSE: Rigoberto SCOPE: Olympus videoendoscope. ASA CLASS: 3 PREOPERATIVE MEDICATIONS: Mac sedation, Dr. Eaton PROCEDURE IN DETAIL: After obtaining an informed consent, the patient was placed on left lateral decubitus position. The patient was then sedated with the above medications. A bite block was placed between her teeth. The endoscope was then passed through the oropharynx, into the esophagus, and through the stomach and pylorus up to the second and third part of the duodenum. The endoscope was then withdrawn. The 2nd and 3rd part of the duodenum and the duodenal bulb were normal. Duodenal biopsies were obtained The pre-pyloric area antrum and distal body of the stomach showed gastritis with hyperemia erythema and some flecks of old blood On retroflexion the fundus and cardia were normal. There was suggestion of some extrinsic compression in the midbody of the stomach. Gastric biopsies were The endoscope was then withdrawn into distal esophagus where the patient had a 1-2 cm sliding-type hiatal hernia but no significant erosive esophagitis Patient had tertiary contractions of the esophagus. Oropharynx was normal The patient tolerated the procedure well without difficulty. COMPLICATIONS : None SPECIMENS: Duodenal biopsies Gastric biopsies DISPOSITION: Transfer back to the floor Stable PLAN: 1. Await for biopsy result 2. Will place pt on Protonix 40 mg bid 3. Carafate 1 g p.o. twice a day 4. DC aspirin NSAIDs smoking alcohol 5. Outpatient follow up with me in 2-4 weeks to review results and discuss further management 6. Resume soft mechanical diet advance as tolerated PROSPER BECERRA MD Jul 01, 2025 12:46
[2025-07-01] MEDS: AMPICILLIN & SULBACTAM SODIUM 3 GM in SODIUM CHL 0.9% 100 ML IV SCH (13:41)
[2025-07-01] MEDS ORDERED: DOCU-265 PO (16:22)
[2025-07-01] MEDS ORDERED: SUCR1TAB PO (16:22)
[2025-07-01] MEDS ORDERED: POLY335015 PO (16:22)
[2025-07-01] MEDS ORDERED: AUG875T PO (16:22)
[2025-07-01] MEDS ORDERED: PANT40TA2 PO (16:22)
--- NOTE | 2025-07-01 16:24 | DVHDS2 ---
Discharge Summary Date of Admission Jun 29, 2025 at 02:19 Date of Discharge: Jul 01, 2025 Labs/Diagnostic Data: Laboratory Results Test 07/01/25 04:51 06/29/25 04:20 06/28/25 15:15 06/28/25 12:59 White Blood Count 3.9 10^3/uL (4.4-10.8) Red Blood Count 3.87 10^6/uL (4.0-5.20) Hemoglobin 11.4 g/dL (12.2-16.2) Hematocrit 32.4 % (36.0-46.0) Mean Corpuscular Volume 83.7 fL (80.0-100.0) Mean Corpuscular Hemoglobin 29.4 pg (28.0-32.0) Mean Corpuscular Hemoglobin Concent 35.1 g/dL (32.0-36.0) Red Cell Distribution Width 15.0 % (11.8-14.3) Platelet Count 350 10^3/uL (140-450) Mean Platelet Volume 7.9 fL (6.9-10.8) Neutrophils (%) (Auto) % (37.0-80.0) Lymphocytes (%) (Auto) % (10.0-50.0) Monocytes (%) (Auto) % (0.0-12.0) Basophils (%) (Auto) % (0.0-2.0) Neutrophils # (Auto) 10 ^3/uL (1.6-8.6) Lymphocytes # (Auto) 10 ^3/uL (0.4-5.4) Monocytes # (Auto) 10 ^3/uL (0-1.3) Differential Total Cells Counted 100.0 (100) Neutrophils % (Manual) 59 (37.0-80.0) Band Neutrophils % (Manual) 3 Lymphocytes % (Manual) 17 (10.0-50.0) Monocytes % (Manual) 18 (0-12) Eosinophils % (Manual) 3 (0-7) Basophils % (Manual) 0 (0.0-2.0) Metamyelocytes % (manual) 0 Myelocytes % (Manual) 0 Promyelocytes % (Manual) 0 Blast Cells % (Manual) 0 Reactive Lymphocytes 0 Platelet Estimate Adequate Anisocytosis (manual) Slight Potassium Level 3.4 mmol/L (3.5-5.1) Eosinophils (%) (Auto) 1.9 % (0.0-7.0) Eosinophils # (Auto) 0.1 10 ^3/uL (0-0.8) Basophils # (Auto) 0 10 ^3/uL (0-0.2) Nucleated Red Blood Cells 0.1 % Sodium Level 132 mmol/L (136-145) Chloride Level 102 mmol/L (98-107) Carbon Dioxide Level 21 mmol/L (20-31) Anion Gap 9 (5-15) Blood Urea Nitrogen 10 mg/dL (9-23) Creatinine 0.74 mg/dL (0.550-1.02) Glomerular Filtration Rate Calc 77 mL/min (>90) BUN/Creatinine Ratio 13.5 (10.0-20.0) Serum Glucose 82 mg/dL (74-106) Calcium Level 9.5 mg/dL (8.7-10.4) Total Bilirubin 0.5 mg/dL (0.2-1.0) Aspartate Amino Transferase (AST) 32 U/L (13-40) Alanine Aminotransferase (ALT) 30 U/L (7-40) Alkaline Phosphatase 83 U/L (46-116) Troponin I High Sensitivity 17 ng/L (</=34) B-Type Natriuretic Peptide 132.58 pg/mL (0-100) Total Protein 6.9 g/dL (5.7-8.2) Albumin 4.1 g/dL (3.2-4.8) Urine Color Yellow (Yellow) Urine Clarity Turbid (Clear) Urine pH 6.0 (5.0-9.0) Urine Specific [place] 1.020 (1.001-1.035) Urine Protein Trace (Negative) Urine Ketones Negative (Negative) Urine Blood Negative /uL (Negative) Urine Nitrite Negative (Negative) Urine Bilirubin Negative (Negative) Urine Urobilinogen Normal mg/dL (Negative) Urine Leukocyte Esterase 2+ /uL (Negative) Urine RBC 8 /hpf (0 - 4) Urine Microscopic WBC 16 /HPF (0-5) Urine Squamous Epithelial Cells Few /hpf (<5) Urine Bacteria None seen /hpf (None Seen) Urine Hyaline Casts Few /lpf (0 - 2) Urine Mucus Few (None Seen) Urine Yeast (Budding) Occasional /hpf (None Urine Glucose Normal mg/dL (Normal) Lipase 43 U/L (12-53) Other Laboratory Tests 9/22/25 04:51 06/29/25 04:20 Brief Hx & Hospital Course: 89-year-old female with a past medical history of hypertension, osteoarthritis, GERD, dyslipidemia, chronic AFib and sick sinus syndrome post pacemaker placement. She presented with complaints of abdominal and back pain that have persisted for the past three months. She describes the pain as sharp, on and off, with an intensity of 8 out of 10, non-radiating, and aggravated by inspiration, with no known alleviating factors. The patient reports that the pain had subsided temporarily but has worsened over the past two days. She states that she visited a doctor in February for back pain and was diagnosed with a T7T12 compression fracture and stool retention. Additionally, she complains of severe dizziness and alternating episodes of constipation and diarrhea. 07/01: Patient doing good, EGD was done today finding gastritis and sliding hiatal hernia. Patient tolerating p.o., plan we will Protonix b.i.d., Carafate b.i.d.,. Cleared by GI, stable for discharge with plan below. Diagnosis: Gastroenteritis, infectious etiology likely Acute gastritis Sliding hiatal hernia Intractable abdominal pain, status post upper endoscopy 07/01/2025 hypertension, osteoarthritis, GERD, dyslipidemia, chronic AFib sick sinus syndrome post pacemaker placement Plan: Protonix 40 twice daily , 1 month Carafate 100 mg twice daily,1 months MiraLax 17 g once daily for 7 days Docusate 100 mg twice daily for 30 days Augmentin 875 twice daily for 3 days Continue diet , full liquid diet Follow up with PCP Follow up with GI Condition at Discharge: Fair Final Diagnosis/Problems List Gastroenteritis, infectious etiology likely Acute gastritis Sliding hiatal hernia Intractable abdominal pain, status post upper endoscopy 07/01/2025 hypertension, osteoarthritis, GERD, dyslipidemia, chronic AFib sick sinus syndrome post pacemaker placement Discharge Disposition: Home Discharge Instruct/Medications Scheduled Apixaban Base (Eliquis), 2.5 MG PO BID, (Reported) Aspirin (Aspir-Low), 81 MG PO DAILY, (Reported) Calcium (Calcium), 1,000 MG PO DAILY, (Reported) Cholecalciferol (Vitamin D3), 5,000 UNIT OR DAILY, (Reported) Clonidine Hydrochloride (Clonidine Hcl), 0.1 MG PO PRN, (Reported) Cranberry Extract (Cranberry), 1 TAB PO DAILY, (Reported) Lactobacillus (Probiotic), 1 TAB OR DAILY, (Reported) Losartan Potassium (Losartan Potassium), 25 MG PO DAILY, (Reported) Magnesium Chloride (Slow-Mag), 1 TAB OR DAILY, (Reported) Pantoprazole Sodium Sesquihydr (Protonix), 40 MG PO DAILY, (Reported) Vit W/ Ferrous Fumara (One A Day Womens 28-0.8 & 223 mg), 1 TAB PO DAILY, (Reported) Tramadol Hcl (Tramadol Hcl), 50 MG PO BID Discharge Statement: "Patient was advised to return to the ER or call 911 if any headaches, dizziness, shortness of breath, chest pain, abdominal pain, bleeding, fevers, or worsening of medical condition. Patient was counseled about treatment plan, medications, possible side effects, patientverbalized understanding. All questions were answered to the best of my ability. This discharge took greater then 30 minutes in planning, reviewing documentation, counseling the patient, and discussing with other team members." ASSESSMENT ASSESSMENT Assessment Date of Service: Jul 01, 2025 Billing Provider: MARTHA EUCEDA MD Common Visit Codes: 05366-AHR/OBS DISCH DAY >30min MARTHA EUCEDA MD Jul 01, 2025 16:24
[2025-07-01] MEDS: PANTOPRAZOLE 40 MG TAB PO SCH (17:00)
[2025-07-01] MEDS ORDERED: SUCRALFATE 1 GM/10 ML ORAL SUSP PO SCH (22:00)
== END 2025-07-01 17:58 | disposition home or self-care (01) | DRG 392 ==
LOC: ER 12:18 → OVERFLOW 06-29 02:19 → WEST WING 06-29 04:37
PROVIDERS: ADMIT Student in an Organized Health Care Education/Training Program; ATTEND Student in an Organized Health Care Education/Training Program
PROC: 0DB68ZX Excision of Stomach, Via Natural or Artificial Opening Endoscopic, Diagnostic (ICD-10-PCS; 2025-07-01)
PROC: 0DB98ZX Excision of Duodenum, Via Natural or Artificial Opening Endoscopic, Diagnostic (ICD-10-PCS; principal; 2025-07-01 12:17)
DX: K29.00 Acute gastritis without bleeding (principal); A09 Infectious gastroenteritis and colitis, unspecified; I16.9 Hypertensive crisis, unspecified; K56.7 Ileus, unspecified; I48.20 Chronic atrial fibrillation, unspecified; K59.00 Constipation, unspecified; Z66 Do not resuscitate; K21.9 Gastro-esophageal reflux disease without esophagitis; K44.9 Diaphragmatic hernia without obstruction or gangrene; E78.5 Hyperlipidemia, unspecified; I11.0 Hypertensive heart disease with heart failure; M48.56XS Collapsed vertebra, not elsewhere classified, lumbar region, sequela of fracture; I50.9 Heart failure, unspecified; Z79.01 Long term (current) use of anticoagulants; Z88.6 Allergy status to analgesic agent; Z88.5 Allergy status to narcotic agent; Z88.1 Allergy status to other antibiotic agents; Z90.49 Acquired absence of other specified parts of digestive tract; Z86.73 Personal history of transient ischemic attack (TIA), and cerebral infarction without residual deficits; Z95.0 Presence of cardiac pacemaker; Z82.49 Family history of ischemic heart disease and other diseases of the circulatory system; Z79.82 Long term (current) use of aspirin; Z79.899 Other long term (current) drug therapy
CPT/HCPCS: 36415; 43239; 71045; 74176; 74250; 80053; 81001; 83690; 83880; 84132; 84484; 85007; 85025; 85027; 87081; 93005; 96374; 96375; 97163; G0378; J1885; J2250; J2405; J2470; J2704